=== PATIENT | female | born 1945 | race Caucasian/White ===

== ENCOUNTER → 2018-02-24 10:43 | Outpatient (BNVA) | payer MEDICARE, OTHER, SELFPAY | PROVIDERS: Visit Provider Student in an Organized Health Care Education/Training Program | DX: M17.11 Unilateral primary osteoarthritis, right knee (principal); M54.16 Radiculopathy, lumbar region; M17.12 Unilateral primary osteoarthritis, left knee | CPT/HCPCS: 20610; 99213; 99214; J1040 ==

== ENCOUNTER 2018-02-24 12:13 | Outpatient (REF) | payer MEDICARE, OTHER, SELFPAY ==
[2018-02-24 13:45] LABS: Clarity CLEAR; Mononuclear Cells 96 % (0-0); Nucleated Cells 316 /MM3 (0-0); Polynuclear Cells 4 % (0-0); Source R KNEE
== END 2018-02-24 12:33 ==
LOC: LBN 12:13
PROVIDERS: PCP Nurse Practitioner Family; Visit Provider Student in an Organized Health Care Education/Training Program
DX: M25.461 Effusion, right knee (principal)
CPT/HCPCS: 89051; 89060

== ENCOUNTER 2018-03-11 00:56 | Outpatient (CLI) | payer MEDICARE, OTHER, SELFPAY ==
--- NOTE | 2018-03-11 13:50 | DI.RAD_ITS ---
SYMPTOMS/DIAGNOSIS: AGE-RELATED OSTEOPOROSIS, M81.0 DEXA SCAN: Routine examination. Evaluation of the spine shows no compression deformities. Evaluation of the left hip shows a total T score of -1.3 and a Z score of 0.2. This is consistent with osteopenia and an increased fracture risk. Evaluation of the lumbar spine shows a total T score of 0.5 and a Z score of 2.7. This is within normal limits. There is no evidence of osteoporosis present. IMPRESSION: Osteopenia in the left hip.
== END 2018-03-11 01:16 ==
PROVIDERS: PCP Nurse Practitioner Family; Visit Provider Student in an Organized Health Care Education/Training Program
DX: M81.0 Age-related osteoporosis without current pathological fracture (principal); M85.88 Other specified disorders of bone density and structure, other site
CPT/HCPCS: 77080

== ENCOUNTER 2018-04-16 00:25 | Outpatient (CLI) | payer MEDICARE, OTHER, SELFPAY ==
--- NOTE | 2018-04-16 10:00 | DI.COMBO_ITS ---
SYMPTOMS/DIAGNOSIS: ASYMMETRIC DENSITY, R92.8, 6-MO F/U MAMMO MAMMOGRAM WITH ADDITIONAL MAMMOGRAPHIC VIEWS, LEFT BREAST, AND LEFT BREAST ULTRASOUND: Mammograms were interpreted according to the usual protocol including computer analysis with CAD system, tomosynthesis and C view imaging. Magnification views were interpreted using 2D imaging.. Mammogram with additional mammographic views of the left breast and left breast ultrasound was obtained to evaluate a group of microcalcifications seen posteriorly in the left breast on previous mammogram of October 2017. On today's examination, the group of microcalcifications, which are mostly punctate, is again seen posteriorly in the left breast in the central portion of the breast. Additional magnification views were obtained; there appear to be an increased number of microcalcifications on today's examination. Additionally, I would note that there is a question of a few isabel-like forms and some very tiny sand- like microcalcifications; these findings would be associated with increased risk of malignancy and do appear to be new since the previous examination. Left breast ultrasound shows no evidence of a mass or cyst. CONCLUSION: Interval change in left breast microcalcifications; biopsy recommended to evaluate the possibility of malignancy. Category 4, breast density category B. MQSA ASSESSMENT OF FINDINGS: Suspicious. Biopsy should be considered. Category 4. Patient will receive a letter notifying them of these results. BI-RADS category B. There are scattered areas of fibroglandular density.
== END 2018-04-16 00:45 ==
PROVIDERS: PCP Nurse Practitioner Family; Visit Provider Nurse Practitioner Family
DX: R92.1 Mammographic calcification found on diagnostic imaging of breast (principal)
CPT/HCPCS: 76642; 77061; 77065; G0279

== ENCOUNTER 2018-04-21 10:50 | Outpatient (CLI) | payer MEDICARE, OTHER, SELFPAY ==
--- NOTE | 2018-04-21 10:47 | DI.RAD_ITS ---
SYMPTOM/DIAGNOSIS: RT FOOT HALLUX VALGUS RIGHT FOOT: 04/21 Three views were obtained. There is a moderate hallux valgus deformity of the right foot. There are mild secondary degenerative changes at the first MTP joint. Mild DJD also seen in multiple mid foot joints and IP joints of the foot. No other significant bony abnormality seen.
== END 2018-04-21 11:10 ==
PROVIDERS: PCP Nurse Practitioner Family; Referring Provider Nurse Practitioner Family; Visit Provider Student in an Organized Health Care Education/Training Program
DX: M20.11 Hallux valgus (acquired), right foot (principal); M19.071 Primary osteoarthritis, right ankle and foot; M17.12 Unilateral primary osteoarthritis, left knee; M47.816 Spondylosis without myelopathy or radiculopathy, lumbar region; M17.11 Unilateral primary osteoarthritis, right knee
CPT/HCPCS: 20610; 99214; 73630; J1040

== ENCOUNTER → 2018-08-15 08:23 | Outpatient (BNVA) | payer MEDICARE, OTHER, SELFPAY | PROVIDERS: PCP Nurse Practitioner Family; Referring Provider Nurse Practitioner Family; Visit Provider Student in an Organized Health Care Education/Training Program | DX: M17.12 Unilateral primary osteoarthritis, left knee (principal) | CPT/HCPCS: 99213 ==

== ENCOUNTER 2018-09-19 09:09 | Outpatient (CLI) | payer MEDICARE, OTHER, SELFPAY ==
--- NOTE | 2018-09-19 08:11 | HPE_ITS ---
Assessment and Plan (1) Primary osteoarthritis of left knee: Current visit: Yes Status: Chronic Plan: Educated patient on surgery covering surgical technique via models/prosthesis components, recovery process, benefits and risks including but not limited to risk of infection, blood clot, damage to soft tissue/blood vessels/nerves in detail. After discussion patient gives verbal understanding of risks and elects to proceed with scheduling surgery. Patient had opportunity to have questions answered to her satisfaction. She will contact office if issues arise. Surgical planning standing alignment x-rays were ordered at today's visit which continued to show severe left knee DJD. Patient will continue to be scheduled for left TKA with Dr. Shelley on 09/25/18. History of Present Illness Narrative: Ms. Gómez is a 73-year-old female who presents to clinic for preoperative appointment for scheduled left total knee replacement with Dr. Shelley on 09/25/18. Patient has previously been seen in orthopedic clinic several times for known bilateral knee DJD. For the last 2 visits patient's left knee has been most aggravated. Patient's identifies majority of her left knee pain as being located on the medial aspect of the joint but occurs diffusely. Pain is further aggravated with ambulation, stair climbing, descending stairs, prolonged walking and with standing. Patient reports pain is severe when descending stairs causing her to go 1 stair at a time and turn to hold the railing. Due to her pain patient has difficulty completing desired activities including gardening and has had to severely adapt how she sits in order to continue gardening. She feels her left knee is occasionally unstable but denies any true giving out sensation. Patient has been managing pain by taking Celebrex twice daily which helps significantly. Previously patient has received a right knee corticosteroid injection on 02/24/18 as well as left knee corticosteroid injection on 04/21/18. Patient reports injections provided significant relief but she has continued to have recurrence of pain that affects her daily life. Previous x-rays from 10/02/17 show [id number] articulation with medial compartment, signs of sclerosis and medial joint line osteophytes - x-ray findings are consistent with severe degenerative joint disease especially of the medial compartment and patellofemoral joint. Due to patient's continued pain despite adequate trial of conservative therapies she wished to proceed with scheduling left total knee replacement. Pertinent Surgical Information Patient has significant history of invasive ductal carcinoma of the left breast. Patient underwent left breast lumpectomy in 1992. Due to return of cancer patient had a left breast mastectomy on 06/27/18. Patient reports since surgery she has been doing well. Patient states approximately 1 year ago she was experiencing back pain that radiated into her jaw. Patient presented to her primary care provider who ordered EKG and abdominal ultrasound which as per Gabbi Carroll NP note on 08/29/17 - results from work-up were WNL. At patient's follow-up appointment for these complaints on 09/13/17 she reported she was no longer experiencing this pa in. EKG was not able to be reviewed by provider at her pre-op appointment. Patient states since she was seen last August she has not experienced any back pain. Denies any history of chest pain,or any pain radiating down her arm. Patient denies all pertinent cardiac and pulmonary review of systems. Denies past medical history of: Hypertension, stroke, cardiac issues, angina, asthma, COPD, sleep apnea, renal issues, liver issues, hepatitis, gastrointestinal issues, ulcers, bleeding disorders, seizures, migraines, anxiety, depression, diabetes Denies prior complications from surgery or anesthesia. Review of Systems Constitutional Denies fever(s), Denies frequent falls and Denies headache(s) Eyes Denies change in vision ENT Denies dizziness, Denies headache(s), Denies epistaxis, Denies mouth pain, Reports nasal discharge (clear discharge occassional blood after blowing nose due to dryness), Denies nose pain and Denies sore throat Comments: Positive for partial upper dental plate Cardiovascular Denies chest pain, Denies rapid heart rate, Denies irregular heart rhythm, Denies palpitations, Denies dyspnea, Denies dyspnea on exertion, Denies orthopnea, Denies paroxysmal nocturnal dyspnea and Denies slow heart rate Respiratory Denies cough, Denies dyspnea, Denies dyspnea on exertion and Denies wheezing Gastrointestinal Denies abdominal pain, Denies melena, Denies hematochezia, Denies constipation, Denies diarrhea, Denies nausea and Denies vomiting Genitourinary Denies hematuria, Denies dysuria, Reports urinary incontinence and Denies urinary urgency Comments: Denies postmenopausal bleeding Musculoskeletal Reports as per HPI, Denies numbness (Of the left leg) and Denies tingling (Of the left leg) Neurologic Denies dizziness, Denies frequent falls, Denies headache(s), Denies numbness (Of the left leg) and Denies tingling (Of the left leg) Psychiatric Denies anxiety and Denies depression Endocrine Denies palpitations Allergic/Immunologic Denies wheezing [facility] Medical History Postmenopausal Breast cancer Increased BMI (body mass index) SCC (squamous cell carcinoma) Urge incontinence Colon polyps Invasive ductal carcinoma of breast (Inactive) Urge incontinence (Chronic 07/04/15) 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) Seborrheic keratosis (Acute 08/29/16) Pure hypercholesterolemia (Chronic 02/16/86) Primary osteoarthritis of left knee (Chronic 10/09/17) Osteoporosis (Chronic 07/04/15) Obesity (Chronic 09/26/95) Hypothyroidism (Chronic 01/09/94) Hyperlipidemia (Chronic) Dysplasia of cervix (Acute 04/24/83) BCC (basal cell carcinoma) (Resolved) Adenomatous colon polyp (Acute 06/22/13) AK (actinic keratosis) (Chronic 08/29/16) Lumbar radiculopathy, right (Chronic) Primary osteoarthritis of right knee (Chronic) Surgical History S/P mastectomy (Chronic) Breast, Lumpectomy (06/03/92) Tonsillectomy and adenoidectomy colonoscopy/polypectomy (11/02/07) S/P breast biopsy, left (Resolved 05/20/18) Family History Mother Hyperlipidemia Osteoarthritis Father Heart disease Paternal Cousin Personal history of malignant neoplasm Paternal Uncle Personal history of malignant neoplasm Social History Smoking/Tobacco Use Status: Former Tobacco Use Drug use: Never Meds Home Medications Medication Instructions Recorded Confirmed Type aspirin [Aspir 81] 81 mg PO DAILY tab-cap 07/01/15 09/19/18 History omega-3 fatty acids-fish oil 1 ea PO DAILY 07/01/15 09/19/18 History [[place] 3 Fish Oil Softgel] s-adenosylmethionine [John-E] 200 mg PO DAILY 07/01/15 09/19/18 History cholecalciferol (vitamin D3) 1,000 unit PO DAILY 07/04/15 09/19/18 History [Vitamin D3] glucosamine sulf-chondroitinSA 1 ea PO DAILY 07/04/15 09/19/18 History multivitamin [Multi-Day Vitamins] 1 ea PO DAILY 07/04/15 09/19/18 History cyanocobalamin-cobamamide 1 ea SUBLINGUAL DAILY 08/29/17 09/19/18 History ranitidine 150 mg tablet 150 mg PO HS PRN #90 tab-cap 07/09/18 09/19/18 Rx levothyroxine 137 mcg tablet 137 mcg PO DAILY #90 tab-cap 07/21/18 09/19/18 Rx celecoxib 100 mg capsule 100 mg PO BID #180 cap 08/06/18 09/19/18 Rx fish,bora,flax oils-om3,6,9no1 1 cap PO DAILY 09/19/18 09/19/18 History [[place] 3-6-9 Complex] rosuvastatin [Crestor] 20 mg PO HS 09/19/18 09/19/18 History Allergies Allergy/AdvReac Type Severity Reaction Status Date / Time coconut oil AdvReac Unknown hives Unverified 09/19/18 16:01 cyclobenzaprine AdvReac Unknown Psychosis Unverified 09/19/18 16:01 lanolin AdvReac Unknown hives Unverified 09/19/18 16:01 naproxen AdvReac Unknown hives Unverified 09/19/18 16:01 paraben AdvReac Unknown hives Unverified 09/19/18 16:01 Exam Const General: cooperative and no acute distress [facility] Head: normal to inspection, normocephalic and atraumatic Ears: external ears normal General nose exam: external nose normal and no nasal discharge Face and sinus: face symmetric Mouth: oral mucosae normal, lip normal, tongue normal and moist mucous membranes Teeth and gingiva: dentition normal Throat: posterior oropharynx normal Eyes General: appearance normal, both eyes and all related structures Pupils: PERRL EOM: EOM intact bilaterally Neck Neck: trachea midline Carotids: normal carotid upstroke Lymphatic: no lymphadenopathy noted Resp Effort & Inspection: normal respiratory effort and able to speak in complete sentences Auscultation: clear to auscultation bilaterally, no rales, no rhonchi and no wheezes Cardio Heart Sounds: S1 normal, S2 normal, no murmurs, no rubs and no other Pulses: radial pulses present bilaterally GI Palpation: soft, no hepatosplenomegaly and nontender Auscultation: normal bowel sounds Skin General skin exam: no rashes or lesions noted Extrem Other: Left knee examination: Skin is intact without signs of erythema, calor or lesions. Tenderness to palpation along medial joint line. Active range of motion is short of full extension by 10 degrees and yields flexion of 110 degrees - slight discomfort is elicited with ROM. Slight laxity is noted with valgus stress however stable endpoint is present. Knee is stable to varus stress. Slight discomfort is elicited with stress to the knee. Results Labs : 09/19/18 10:17 09/19/18 10:17
[2018-09-19 10:40] LABS: HCT 44.9 % (36.0-46.0); HGB 14.6 g/dL (12.0-15.5); Mean Corp. HGB Concentration 32.5 g/dL (32.0-36.0); Mean Corpuscular Hemoglobin 28.5 pg (27.0-33.0); Mean Corpuscular Volume 87.5 fL (80-95); Platelet Count 264 x1000/uL (130-400); RBC 5.13 m/cumm (4.00-5.20); RBC Distribution Width 13.7 % (11.7-14.6); White Blood Cell Count 6.77 k/cumm (4.4-10.8)
[2018-09-19 11:20] LABS: Anion Gap 7.9 mmol/L (3-11); BUN 21 mg/dL (7-18); CO2 29.1 mmol/L (21.0-32.0); CREATININE 0.89 mg/dL (0.55-1.02); Calcium 9.8 mg/dL (8.5-10.1); Chloride 103 mmol/L (98-107); Cholesterol 258 mg/dL (50-200); Glucose 99 mg/dL (70-100); HDL Cholesterol 83 mg/dL (40-60); LDL CHOLESTEROL 142 mg/dL (<100); Potassium 4.6 mmol/L (3.5-5.1); Sodium 140 mmol/L (136-145); Triglyceride 141 mg/dL (30-150)
== END 2018-09-19 09:29 ==
PROVIDERS: PCP Nurse Practitioner Family; Visit Provider Student in an Organized Health Care Education/Training Program
DX: M25.562 Pain in left knee (principal); M17.12 Unilateral primary osteoarthritis, left knee; E78.5 Hyperlipidemia, unspecified; E03.9 Hypothyroidism, unspecified; Z13.1 Encounter for screening for diabetes mellitus; Z01.818 Encounter for other preprocedural examination
CPT/HCPCS: 36415; 80048; 80061; 83721; 85027; 84443

== ENCOUNTER 2018-09-19 13:17 | Outpatient (CLI) | payer MEDICARE, OTHER, SELFPAY ==
--- NOTE | 2018-09-19 08:08 | DI.RAD_ITS ---
SYMPTOM/DIAGNOSIS: PREOP PLANNING FOR LT TKA BILATERAL LOWER EXTREMITIES: AP views of the lower extremities were obtained for leg length determination. There are mild degenerative changes of both hips. There are severe degenerative changes involving the medial tibiofemoral joint on the left and lateral tibiofemoral joint on the right.
== END 2018-09-19 13:37 ==
PROVIDERS: PCP Nurse Practitioner Family; Visit Provider Physician Assistant
DX: M17.0 Bilateral primary osteoarthritis of knee (principal); M16.0 Bilateral primary osteoarthritis of hip
CPT/HCPCS: 36415; 80048; 80061; 83721; 85027; 77073; 84443

== ENCOUNTER 2018-09-25 06:03 | Inpatient (IN) | payer MEDICARE, OTHER, SELFPAY ==
[2018-09-25] VITALS (10 sets, daily range): BP systolic 97–133; BP diastolic 62–75; PULSE 74–91; RESP 13–20; TEMP 36.3–36.5; O2SAT 92–100
[2018-09-25] MEDS: Acetaminophen 500 MG TAB 1000 MG PO ×3 (06:38→19:18)
[2018-09-25] MEDS: oxyCODONE-CR 10 MG TABCR PO (06:38)
[2018-09-25] MEDS: Gabapentin 300 MG CAP PO ×2 (06:38→21:02)
[2018-09-25] MEDS: Lactated Ringers 1,000 ML 80 ML IV ×3 (07:04→19:08)
[2018-09-25] MEDS: Bupivacaine 0.5% Pres-Free 30 ML VIAL (07:15)
[2018-09-25] MEDS: Bupivacaine LIPOSOME/PF 133 MG/10 ML VIAL IJ ×2 (07:15→08:44)
[2018-09-25] MEDS: ceFAZolin 2 GM/50 ML BAG IVPB (07:29)
[2018-09-25] MEDS: Ketorolac 30 MG/ML VIAL (08:44)
[2018-09-25] MEDS: Normal Saline 50 ML (08:44)
[2018-09-25] MEDS: Bupivacaine 0.25% Pres-Free 30 ML VIAL (08:44)
--- NOTE | 2018-09-25 10:52 | NUR.NOTE ---
Nursing Note:Pt arrived from PACU via stretcher. Transferred via hover mat to bed. HR reg. LS clear. BS positive. no skin issues noted. Pt has left mastectomy. CMST's WNL. Palpable pulse. denies pain. cryo on, RODRIGUEZ intact. sipping G. Kathy and eating saltines. hallman patent. VSS, see worklist.
--- NOTE | 2018-09-25 14:58 | W.PM.OP ---
Date of service: 09/25/18 Time of Service: 09:59 Operative Note DATE OF PROCEDURE: 09/25/18 PRE-OP DIAGNOSIS: Left knee osteoarthritis POST-OP DIAGNOSIS: same PROCEDURE: Left Total Knee Replacement SURGEON: Carson Shelley CALCINE FURNACE LOADER: Nano Moralez ANESTHESIA: regional and spinal ESTIMATED BLOOD LOSS: 150 PATHOLOGY: none sent TOURNIQUET TIME: 32 COMPLICATIONS: None Patient was transported to: PACU Patient's condition: stable Implants: 1. Depuy Attune Posterior Stabilized Femoral Component, Size 6 2. Depuy Attune Fixed Platform Tibial Component, Size 5 3. Depuy Attune 6x6mm Fixed, Stabilized Poly 4. Depuy Attune Patellar Component, Size 35mm Indications: I have seen Neisha in clinic for symptoms of left knee arthritis, confirmed with radiographic findings. Neisha has exhausted nonoperative methods and was having significant limitations in daily function and desired better function and less pain. I discussed the technical details of a knee replacement. I explained the risks of the procedure to include, but not limited to, bleeding, infection, pain, stiffness, fracture, damage to nerves and vessels, damage to muscles and tendons, loosening, need for repeat procedure, blood clot and cardiopulmonary demise. Despite these risks, Neisha elected to proceed. Findings: There was significant signs of arthritis throughout the knee. This was seen primarily of the medial compartment. Procedure Description: Neisha was greeted in the preoperative holding area where the correct side was identified and marked. The consent was reviewed with the patient and signed. The history and physical was updated. All questions were answered. Preoperative mediacations were administered: Acetaminophen 1000mg, Celebrex 400mg, Gabapentin 300mg, and Oxycontin 10mg. An adductor canal block was then administered by the anesthesia team in the PACU. Neisha was taken back to the operating room. A spinal anesthestic was then administered. The patient was placed into the supine position on the operating room table. A nonsterile tourniquet was placed high onto the leg but only used for cementing. Posts were placed for positioning during the procedure. All bony prominences were well padded. Prophylactic antibiotics in the form of Cefazolin were administered. 1g of Tranxemic Acid was given intravenously within 30 minutes of incision. The left leg was then prepped with Chloraprep and draped in a standard fashion with impervious stockinette and extremity drape with Iodine impregnated skin protection. A timeout to confirm correct identity, side and site, procedure, allergies, anesthesia, and medical concerns was performed. With the knee in some flexion, a midline incision was made overlying the knee. Full thickness skin flaps were raised once the extensor mechanism was encountered. These were raised medially and laterally. Any bleeding was controlled with electrocautery. Once the extensor mechanism was fully exposed, a medial parapatellar arthrotomy was performed in a flexed position. All bleeding from the arthrotomy and the geniculate arteries was coagulated. A medial subperiosteal peel was performed with electrocautery to the midcoronal plane. Due to the significant varus deformity the entire medial tibial plateau was exposed. The fat pad was removed while keeping the patellar tendon protected. The anterior distal femur synovium was removed for later visualization. The ACL and PCL were resected and the anterior horn of the lateral meniscus was transected. The knee was then flexed with the patella everted. Large osteophytes from the tibia were removed. Large osteophytes from the femur were removed. Using a step drill, and based on preoperative templating, the femoral canal was entered. This was done with a step drill without any difficulty. The intramedullary distal femoral cut guide was inserted, set to a 5 degree valgus cut and 10mm cut thickness. The distal femoral cut guide was then held in position and pinned. With the soft tissues protected, the distal cut was performed. This was passed over a few times to ensure a planar cut. I then turned attention to the tibia. The extramedullary guide was placed onto the leg. The distal aspect was slid medial to adjust for position of center of ankle and stay in line with shaft of the tibia. Approximately 3-5 degrees of posterior slope was kept in the proximal cutting guide. The center of the guide was aligned with the PCL. The stylus was used to assess cut thickness. The medial side, most involved side, was set for a 4mm cut. This was then held in position and pinned into place with 2 additional pins and a cross pin for stability. The medial and lateral collateral ligaments were protected and the cut was performed. With this completed, it was assessed and noted to be of appropriate dimensions. The guide was removed. A spacer block was inserted and the knee was brought into extension. The 6mm spacer block provided full extension, without hyperextension and with stability of both the medial and lateral collateral ligaments was assessed. The pins from the femur and the tibia were then removed. The distal femur was then sized. The anterior stylus was placed onto the lateral ridge of the anterior femur. This indicated a size 6 femur. The external rotation of the guide was adjusted to 5 degrees to match the epicondylar axis, perpendicular to Kelton?s line. The 4-in-1 cutting guide was the placed. The posterior medial femur cut was evaluated and appeared of good thickness. The spacer block was inserted underneath the cutting guide and stability was confirmed in 90 degrees of flexion. An sha wing was used to confirm appropriate position of the anterior cut to avoid notching. This cutting guide was ensured to be flush on the cut surface and then pinned into place with headed pins. While protecting the soft tissues, quad tendon, and collateral ligaments, the anterior and posterior cuts were performed with a saw. The central two pins were removed and the posterior and anterior chamfers were cut next. The notch-cutting guide was placed. This was pinned to lateralize the femoral component as much as possible while keeping it flush on the cut surface. This was then pinned into position. A reciprocating saw was used to make the notch cut. A rasp smoothed the cut surfaces. A trial posterior stabilized femoral component was then inserted, impacted down to the cut surfaces, and the lug holes were drilled. A provisional trial tibial component was placed and the knee was brought through range of motion. There was noted to be excellent extension and flexion. There was no significant instability. The patella was tracking without thumbs. The tibial cut surface was fully exposed. The medial and lateral menisci were removed. The tibia was then sized as a 5. The tibia had been previously marked during trialing to correspond to the center of the tibial component to help with rotation. The trial was aligned to this aly, approximately rotated to the medial 1/3rd of the tibial tubercle. The trial was pinned into place. The tibia was prepared with a reamer and a keel punch. The knee was then brought into extension and the patella was measured as 29mm. Using the patellar clamp and cut guide, this was resected to a flat surface with at least 13mm of thickness remaining. The size 35 patella fit the best. This was oriented and then clamped into position. The lugs were drilled. The trial components were removed. The final components, except for the polyethylene were opened on the back table. The periosteal and capsular tissues, especially posteriorly, around the knee were then systematically injected with a periarticular cocktail consisting of 50cc 0.25% Marcaine, 30mg Ketorolac, 20cc of Exparal and 50cc of injectable saline. The tourniquet was then inflated to 275mmHg. The knee was thoroughly irrigated with a pulse lavage and dried. On the back table, with the implants opened, the cement was mixed. 2 batches of antibiotic laden cement were prepared with vacuum assistance. After the cement was ready a small amount was placed on to the back side of the tibial component at the keel. A small amount was placed onto the posterior flange of the femur. Cement was manual pressurized and impregnated into the cut surface of the tibia. The tibial component was then inserted into the cut surface and impacted into position. Excess cement was removed and the component was reimpacted. Again, excess cement was removed and our attention was then turned to the femur. The femoral cut surface was once again dried and cement was manually impacted into the cut surface. The femoral component was lined with the lug holes and impacted. Excess cement was removed. It was ensured to be down against the cut surface. The trial polyethylene was then inserted and the leg was brought out into full extension for the duration of the cement curing process, approximately 15min. Cement was lastly manually impacted into the cut surface of the patella and the patellar button was clamped into position and held. During this process attention was turned to the gutters of the knee and for all interfaces for any excess cement. After the cement had finally cured, approximately 15min, the clamp was removed from the patella and the knee was taken through range of motion. A size 6mm polyethylene component provided the best range of motion and stability with less than 2mm gapping with medial and lateral stress and full extension without significant hyperextension. The patella was tracking with a no-thumbs technique. The trial poly was removed and once again the knee was checked for any loose, excess, or errant cement. The poly component was then inserted and impacted into position after cleaning and drying the tibial tray. The capsule was then reapproximated with a No. 1 Vicryl at multiple locations. The capsule was finally closed with a No. 2 Stratafix, barbed suture. The tourniquet was then released and the arthrotomy appeared watertight without significant bleeding. The second dosing of 1g TXA was started. Deep tissues were then reapproximated with 0 Vicryl and 2-0 Vicryl. The skin was closed with a running 3-0 Monocryl in a subcuticular fashion. This was reinforced with skin glue. A Mepilex silver dressing was applied along with a abok-tn-bunug RODRIGUEZ wrap. A CryoCuff was applied. Neisha was transferred to the hospital bed without difficulty an suffering no apparent complication. Neisha has a good prognosis. Physical therapy will start today and without restrictions, weight-bearing as tolerated. Aspirin 81mg BID will be used for DVT prophylaxis.
--- NOTE | 2018-09-25 15:54 | IN_ITS ---
Date of service: 09/25/18 Time of Service: 11:15 PT Notes Inpatient Physical Therapy Evaluation Date: 09/25/2018 Referring Doctor: Carson Shelley MD PT Orders: PT CONSULT: Status post left TKA Precautions: Fall. Standard. Patient Profile/Admitting Diagnosis: Patient is a 73-year-old female referred to physical therapy for conservative management status post left knee arthroplasty due to primary osteoarthritis of left knee on POD 0. 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) Seborrheic keratosis (Acute 08/29/16) Pure hypercholesterolemia (Chronic 02/16/86) Primary osteoarthritis of left knee (Chronic 10/09/17) Osteoporosis (Chronic 07/04/15) Obesity (Chronic 09/26/95) Hypothyroidism (Chronic 01/09/94) Hyperlipidemia (Chronic) Dysplasia of cervix (Acute 04/24/83) BCC (basal cell carcinoma) (Resolved) Adenomatous colon polyp (Acute 06/22/13) AK (actinic keratosis) (Chronic 08/29/16) Lumbar radiculopathy, right (Chronic) Primary osteoarthritis of right knee (Chronic) Surgical History S/P mastectomy (Chronic) Breast, Lumpectomy (06/03/92) Tonsillectomy and adenoidectomy colonoscopy/polypectomy (11/02/07) S/P breast biopsy, left (Resolved 05/20/18) Social History/Home Situation: Patient lives in a 1-floor house with 2 steps to enter with rail on the right going up. She is independent with all aspects of ADLs without ambulatory device nor adaptive equipment prior to admission. She states she has a straight cane that she does not use. Daughter lives close by and plans on checking in on her upon discharge. Patient states that she goes to [employer] [facility] twice a week and to yoga class once a week. She still drives. Equipment Owned/DME: Standard walker. Subjective: Patient is pleasant and cooperative. She is agreeable to a PT consult and treatment. She denies nausea, dizziness, and pain throughout the PT session. Objective: General Observation: Patient seen lying in bed. IV in right UE. Anti DVT pump on the right leg. RODRIGUEZ wraps on left LE. Borja catheter in place. BAN stocking on right leg. Mental Status: Alert and oriented x3 Pain: 0/10 Vital Signs: 106/72 mmHg, 97% on room air, 82 bpm. ROM: Right Upper Extremity: Shoulder Flexion WFL. Shoulder abduction WFL. Elbow flexion WFL. Wrist flexion WFL. Functional opening and closing of hand WFL. Left Upper Extremity: Shoulder Flexion WFL. Shoulder abduction WFL. Elbow flexion WFL. Wrist flexion WFL. Functional opening and closing of hand WFL. Right Lower Extremity: Hip flexion WFL. Hip abduction WFL. Knee flexion WFL. Ankle dorsiflexion WFL. Ankle plantarflexion WFL. Left Lower Extremity: Hip flexion 0 to 90 degrees with range limited by abdominal adipose tissue. Hip abduction WFL. Knee flexion 0-100 degrees, range limited by RODRIGUEZ wraps. Knee extension -5 degrees. Ankle dorsiflexion WFL. Ankle plantarflexion WFL. Strength: Right Upper Extremity: Shoulder flexors 5/5. Shoulder abductors 5/5. Elbow flexors 5/5. Elbow extensors 5/5. Route Inspector strong. Left Upper Extremity: Shoulder flexors 5/5. Shoulder abductors 5/5. Elbow flexors 5/5. Elbow extensors 5/5. Route Inspector strong. Right Lower Extremity: Hip flexors 5/5. Hip abductors 5/5. Knee flexors 5/5. Knee extensors 5/5. Ankle dorsiflexors 5/5. Ankle plantarflexors 5/5. Left Lower Extremity:Hip flexors 3-/5. Hip abductors 5/5. Knee flexors 3-/5. Knee extensors 3-/5. Ankle dorsiflexors 5/5. Ankle plantarflexors 5/5. Isometric contraction of quadriceps minimally reduced. Sensation: Intact as to pain and pressure on BLE BED MOBILITY LEVELS/TRANSFERS Rolling CGA Supine to sit CGA with HOB elevated 30 degrees Sit to supine CGA with HOB elevated 30 degrees Sit to stand CGA Stand to sit CGA Bed to chair CGA Chair to bed CGA Gait: Patient tolerated level surface ambulation 10 feet forward, 10 feet backward, and 5 feet to walk towards her chair using FWW with WBAT on L LE and CGA of this PT with minimal verbal cues given for overall safety, walker management, and correct gait pattern. No report of nausea and dizziness were received. He did report mild discomfort at 1/10 on the lateral aspect of the left knee after walking activity. Balance: Static Sitting: Good Dynamic Sitting: Good Static Standing: Fair Dynamic Standing: Fair Special Tests: Mobility Limitations Standardized Measure [facility] AM-PAC 6 clicks Basic Mobility Inpatient Short Form: Raw Score: 18 CMS Score: 47% deficit Informed Consent/Education: Patient instructed in purpose of PT consult and plan of care. Patient was also instructed on correct techniques with doing seated exercises focusing on open chain active left knee extension with isometric hold for 5 counts, active knee flexion to end of range with isometric hold for 5 counts, quadriceps setting with left foot placed on a footstool with 5-second hold, and ankle pain on both sides to be done 10 times every hour in order to maximize range of motion and strength. Assessment: Patient is a 73 year old female referred to physical therapy services with the diagnosis of unilateral primary osteoarthritis of left knee status post left total knee arthroplasty. Patient presents with clinical signs and symptoms consistent with current/admitting diagnoses and post reparative status that have resulted to mobility limitations, gait instability, generalized weakness, and impairment of motor control as demonstrated by the following impairment level findings: 1. Decreased strength to L LE major muscle groups 2. Impaired sitting/standing balance 3. Impaired activity tolerance 4. Limitation of joint range of motion in left knee Impairments are contributing to the following functional limitations: 1. Dependent bed mobility skills 2. Increased dependence with transfers 3. Inability to safely ambulate without assistive device and physical assistance 4. Increase completion time for mobility ADL performance 5. Increased fall risk 6. 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 Supine-Sit independent 2. Sit-Supine independent 3. Sit-Stand independent 4. Stand-Sit independent 5. Bed-Chair independent 6. Chair-Bed independent 7. Independent gait on level surface with use of least restrictive device for at least 300 feet without report of pain nor dyspnea 8. Independent stair negotiation while holding onto bilateral rails for at least 10 steps without report of pain nor dyspnea 9. Independent with home exercise program 10. Good static and dynamic standing balance/tolerance Plan of Care/Treatment Plan: 1-2x/day, 7 days/week x 1 week. Plan of care has been reviewed with the HIGHWAY ENGINEERING TEACHER providing the service under Physical Therapy direction. Initiate Physical Therapy intervention for strengthening, bed mobility, transfers, gait, stairs, balance training, use of assistive device. DISCHARGE RECOMMENDATIONS: Patient will benefit from a front wheeled walker in order to maximize safety and reduce fall risk at home. TREATMENT CODE/TIME: 15931 30 minutes, 82033 19 minutes beginning at 11:15 AM. Thank you for this referral. Katiuska Miner, PT, DPT, CLT [facility]
[2018-09-25] MEDS: Aspirin E.C. 81 MG TABEC PO (19:18)
[2018-09-25] MEDS: Rosuvastatin 10 MG TAB 20 MG PO (19:18)
[2018-09-25] MEDS: Celecoxib 100 MG CAP 200 MG PO (19:18)
[2018-09-26 00:08] VITALS: BP 116/73; PULSE 82; RESP 16; TEMP 36.4; O2SAT 95
[2018-09-26 03:35] VITALS: BP 117/74; PULSE 79; RESP 18; TEMP 36.4; O2SAT 97
[2018-09-26] MEDS: Multivitamin TAB 1 TAB PO (07:45)
[2018-09-26] MEDS: Acetaminophen 500 MG TAB 1000 MG PO (07:45)
[2018-09-26] MEDS: Aspirin E.C. 81 MG TABEC PO (07:45)
[2018-09-26] MEDS: Celecoxib 100 MG CAP 200 MG PO (07:45)
[2018-09-26 07:54] VITALS: BP 123/80; PULSE 78; RESP 18; TEMP 36.6; O2SAT 95
--- NOTE | 2018-09-26 08:15 | DSE_ITS ---
Date of service: 09/26/18 Time of Service: 08:14 DS: Diagnosis Discharge Diagnosis (1) Primary osteoarthritis of left knee: Status: Chronic Discharge Plan Disposition Patient Disposition: HOME Condition: Good Discharge Details Reason For Visit: L KNEE DJD Admit Date/Time: 09/25/18 06:03 Admit Provider: Carson Shelley Attending Provider: Carson Shelley Primary Care Provider: Gabbi Carroll Hospital Course Hospital Course: Patient was admitted to the medical/surgical floor following the procedure. It was tolerated well without any notable medical, surgical, or anesthetic complications. Mobilization began postoperatively. The hallman catheter was removed and voiding spontaneously. Vitals were stable. Physical therapy worked with the patient and was cleared for discharge home. No acute medical issues. Home Meds and New Rx's Prescriptions: New celecoxib 200 mg capsule 200 mg PO BID PRN (Reason: pain) Qty: 60 RF: 1 acetaminophen 500 mg tablet 1,000 mg PO Q8H PRN (Reason: pain) Qty: 90 RF: 3 oxycodone 5 mg tablet 5 mg PO Q4H Qty: 18 RF: 0 Continued John-E 200 MG tablet 200 mg PO DAILY RF: 0 One-Per-Day Maricao-3 1 EACH capsule,delayed release(DR/EC) 1 ea PO DAILY RF: 0 multivitamin [Multi-Day] 1 EACH tablet 1 ea PO DAILY RF: 0 glucosamine sulf-chondroitinSA 1 EACH capsule 1 ea PO DAILY RF: 0 cholecalciferol (vitamin D3) [Vitamin D3] 1,000 UNIT capsule 1,000 unit PO DAILY RF: 0 cyanocobalamin-cobamamide 1 EACH tablet, sublingual 1 ea Sublingual DAILY RF: 0 ranitidine HCl 150 mg tablet 150 mg PO HS PRN (Reason: acid reflux) Qty: 90 RF: 3 levothyroxine 137 mcg tablet 137 mcg PO DAILY Qty: 90 RF: 3 rosuvastatin [Crestor] 20 MG tablet 20 mg PO HS RF: 0 fish,bora,flax oils-om3,6,9no1 [Maricao 3-6-9 Complex] 400-400-400 mg Capsule 1 cap PO DAILY RF: 0 coenzyme Q10 [Co Q-10] 50 mg Capsule 50 mg PO DAILY RF: 0 Changed aspirin [Aspir-81] 81 MG tablet,delayed release (DR/EC) 81 mg PO BID Qty: 60 RF: 0 Discontinued celecoxib 100 mg capsule 100 mg PO BID Qty: 180 RF: 0 Discharge Instructions Additional Instructions: Dr. Shelley?s Total Knee Discharge Instructions Activity: The most important activity is to walk. You should try to take short walks a few times a day. It is important that when resting you work on keeping the knee straight. Avoid putting a pillow behind the knee as this will encourage flexion. Work on range of motion exercises as provided by Physical Therapy. - Start outpatient physical therapy within 2 weeks. - You should wear the BAN hose on both legs for 4 weeks. Dressing: Keep the surgical dressing in place for at least one week. After the first week it may be removed and replace with light gauze and tape or nothing. It may get wet after 3 days but avoid soaking the dressing. If it gets wet, just lightly pat dry. Medications: - You should take Tylenol and anti-inflammatory (Celebrex) as your primary pain control medications - You have been prescribed a stronger pain medication (Oxycodone) for breakthrough pain, take as needed as prescribed. - You will be taking Aspirin 81mg twice a day for DVT prevention unless instructed otherwise. - If you have constipation you should take Colace or Miralax (both [id number]). It takes most people 3-4 days to have a bowel movement. Follow-up: 2 weeks Referrals: Carson Shelley MD [ [facility] STAFF PHYSICIAN] - Activity:: Activity as Tolerated Equipment/Supplies:: Walker Diet:: As Tolerated Discharge Orders Discharge Orders: Discharge Order (Routine); Ordered 09/26/18 Ordered By: Carson Shelley DS: Data Vitals/I&O Vitals and I&O: Vital Signs Temperature 36.6 C 09/26/18 07:54 Temperature Source Tympanic 09/26/18 07:54 Pulse 78 09/26/18 07:54 Pulse Rhythm Regular 09/26/18 07:51 Respiratory Rate 18 09/26/18 07:54 Respiratory Effort Non-Labored 09/26/18 07:51 Respiratory Depth Normal 09/26/18 07:51 Respiratory Pattern Normal 09/26/18 07:51 Blood Pressure 123/80 09/26/18 07:54 Pulse Oximetry 95 09/26/18 07:54 Respiratory End-tidal CO2 36 09/25/18 10:10 Oxygen Delivery Method Room Air 09/26/18 07:54 Oxygen Flow Rate 0 09/26/18 07:54 Pain Level 1 09/26/18 07:45 Comment 09/26/18 03:35 Intake & Output 09/25/18 09/25/18 09/26/18 11:59 23:59 11:59 Intake Total 1310 / 3044 1734 / 3044 1574 / 1574 Output Total 200 / 2425 2225 / 2425 1400 / 1400 Balance 1110 / 619 -491 / 619 174 / 174 Weight 96 kg Intake: IV 1260 / 2204 944 / 2204 1024 / 1024 Oral 50 / 840 790 / 840 550 / 550 Output: Urine 50 / 2275 2225 / 2275 1400 / 1400 Estimated Blood Loss 150 / 150 Other: Urine Color Yellow Pale Pale Yellow Urine Appearance Clear Clear Clear Emesis Description None PFSH Medical History Postmenopausal Breast cancer Increased BMI (body mass index) SCC (squamous cell carcinoma) Urge incontinence Colon polyps Invasive ductal carcinoma of breast (Inactive) Urge incontinence (Chronic 07/04/15) 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) Seborrheic keratosis (Acute 08/29/16) Pure hypercholesterolemia (Chronic 02/16/86) Primary osteoarthritis of left knee (Chronic 10/09/17) Osteoporosis (Chronic 07/04/15) Obesity (Chronic 09/26/95) Hypothyroidism (Chronic 01/09/94) Hyperlipidemia (Chronic) Dysplasia of cervix (Acute 04/24/83) BCC (basal cell carcinoma) (Resolved) Adenomatous colon polyp (Acute 06/22/13) AK (actinic keratosis) (Chronic 08/29/16) Lumbar radiculopathy, right (Chronic) Primary osteoarthritis of right knee (Chronic) Surgical History S/P mastectomy (Chronic) Breast, Lumpectomy (06/03/92) Tonsillectomy and adenoidectomy colonoscopy/polypectomy (11/02/07) S/P breast biopsy, left (Resolved 05/20/18) Family History Mother Hyperlipidemia Osteoarthritis Father Heart disease Paternal Cousin Personal history of malignant neoplasm Paternal Uncle Personal history of malignant neoplasm Social History Smoking/Tobacco Use Status: Former Tobacco Use Drug use: Never
[2018-09-26 11:52] VITALS: BP 117/73; PULSE 72; RESP 20; TEMP 36.2; O2SAT 96
--- NOTE | 2018-09-26 13:37 | PDOC.CMPRO ---
Care Management Progress Note KERON met with Neisha Seay who was sitting up in her chair, pleasant and engaging in interaction; she spoke in length about her move to [place] a few years ago from [place]. She reports finding a home in a supportive community in [place] and making fast friends. She participates in an exercise group with folks locally and feels well supported. She reports her daughter is single and lives alone nearby in [place], [place]. She shared her son is a computer numeric control setter in [place] who's is a doctor; and stated the couple was coming up, driving her home from [facility] and staying with her for awhile for recovery. 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 She moved to [place] after her mother , and Neisha Seay sold her home. Felipa reports a supportive family and friends and shares no concerns regarding her pending discharge. At MD and patient request, KERON filled Charles FWW for Neisha Seay to bring home upon discharge. She will transport via private vehicle with her son, follow up with Dr. Shelley and her plan of care as prescribed.
--- NOTE | 2018-09-26 13:48 | CMPROGNOTE_ITS ---
Care Management Progress Note KERON met with Neisha Seay who was sitting up in her chair, pleasant and engaging in interaction; she spoke in length about her move to [place] a few years ago from [place]. She reports finding a home in a supportive community in [place] and making fast friends. She participates in an exercise group with folks locally and feels well supported. She reports her daughter is single and lives alone nearby in [place], [place]. She shared her son is a computer systems analyst in [place] who's is a doctor; and stated the couple was coming up, driving her home from [facility] and staying with her for awhile for recovery. 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 She moved to [place] after her mother , and Neisha Seay sold her home. Felipa reports a supportive family and friends and shares no concerns regarding her pending discharge. At MD and patient request, KERON filled Charles FWW for Neisha Seay to bring home upon discharge. She will transport via private vehicle with her son, follow up with Dr. Shelley and her plan of care as prescribed.
--- NOTE | 2018-09-26 15:33 | PT.INTREAT ---
Date of service: 09/26/18 Time of Service: 15:33 PT Notes Inpatient Physical Therapy Treatment Note [facility] Date: 09/26/2018 PRECAUTIONS: Fall, WBAT L SUBJECTIVE: Neisha Seay states that she feels good today, and has minimal pain. OBJECTIVE: PAIN: Minimal c/o L posterior thigh discomfort with gait training BED MOBILITY/TRANSFERS Supine-sit: I Sit-stand: S in a.m.; I in p.m. Stand-sit: S in a.m.; I in p.m. GAIT Assistive Device: FWW Weight bearing: WBAT L Assist: SBA in a.m.; S in p.m. Distance: 100' x2 in both a.m. and p.m. THEREX: Patient completed a LE strengthening and stabilization program, as per flow sheet. Left knee AROM is -4-100 degrees. Ends with cryocuff to left knee. STAIRS: Up/down 3x4 and 2x6 using one rail/SPC and a step to pattern, independently TOILETING: Patient toileted with supervision for transfers only ASSESSMENT: Patient tolerated session with minimal complaints of left LE discomfort with gait training. Patient was able to tolerate a progression in gait training with FWW support and supervision. Patient will benefit from continued gait training with FWW as well as strengthening for improved mobility. PLAN: As per primary PT TREATMENT CODE/TIME: Session 1: 35 minutes; 42197, [id number] Session 2: 15 minutes; 83128
--- NOTE | 2018-09-29 13:24 | PT.INDS ---
Date of service: 09/26/18 PT Notes Inpatient Physical Therapy Discharge Summary Dates: 09/26/2018 Dates of Service: 09/25/2018 and 09/26/2018 This is a clinical summary of skilled services provided on the duration of dates listed above. No charge was made in the completion of this document. Referring Doctor: Carson Shelley MD PT Orders: PT CONSULT: Status post left TKA Precautions: Fall. Standard. Patient Profile/Admitting Diagnosis: Patient is a 73-year-old female referred to physical therapy for conservative management status post left knee arthroplasty due to primary osteoarthritis of left knee on POD 0. 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) Seborrheic keratosis (Acute 08/29/16) Pure hypercholesterolemia (Chronic 02/16/86) Primary osteoarthritis of left knee (Chronic 10/09/17) Osteoporosis (Chronic 07/04/15) Obesity (Chronic 09/26/95) Hypothyroidism (Chronic 01/09/94) Hyperlipidemia (Chronic) Dysplasia of cervix (Acute 04/24/83) BCC (basal cell carcinoma) (Resolved) Adenomatous colon polyp (Acute 06/22/13) AK (actinic keratosis) (Chronic 08/29/16) Lumbar radiculopathy, right (Chronic) Primary osteoarthritis of right knee (Chronic) Surgical History S/P mastectomy (Chronic) Breast, Lumpectomy (06/03/92) Tonsillectomy and adenoidectomy colonoscopy/polypectomy (11/02/07) S/P breast biopsy, left (Resolved 05/20/18) Social History/Home Situation: Patient lives in a 1-floor house with 2 steps to enter with rail on the right going up. She is independent with all aspects of ADLs without ambulatory device nor adaptive equipment prior to admission. She states she has a straight cane that she does not use. Daughter lives close by and plans on checking in on her upon discharge. Patient states that she goes to [employer] exercise group twice a week and to yoga class once a week. She still drives. Equipment Owned/DME: Standard walker. Subjective: NT Objective: General Observation: NT Mental Status: Alert and oriented x3 Pain: NT ROM: Right Upper Extremity: Shoulder Flexion WFL. Shoulder abduction WFL. Elbow flexion WFL. Wrist flexion WFL. Functional opening and closing of hand WFL. Left Upper Extremity: Shoulder Flexion WFL. Shoulder abduction WFL. Elbow flexion WFL. Wrist flexion WFL. Functional opening and closing of hand WFL. Right Lower Extremity: Hip flexion WFL. Hip abduction WFL. Knee flexion WFL. Ankle dorsiflexion WFL. Ankle plantarflexion WFL. Left Lower Extremity: Hip flexion 0 to 90 degrees with range limited by abdominal adipose tissue. Hip abduction WFL. Knee flexion 0-100 degrees, range limited by RODRIGUEZ wraps. Knee extension -5 degrees. Ankle dorsiflexion WFL. Ankle plantarflexion WFL. Strength: Right Upper Extremity: Shoulder flexors 5/5. Shoulder abductors 5/5. Elbow flexors 5/5. Elbow extensors 5/5. Technology Training Associate strong. Left Upper Extremity: Shoulder flexors 5/5. Shoulder abductors 5/5. Elbow flexors 5/5. Elbow extensors 5/5. Technology Training Associate strong. Right Lower Extremity: Hip flexors 5/5. Hip abductors 5/5. Knee flexors 5/5. Knee extensors 5/5. Ankle dorsiflexors 5/5. Ankle plantarflexors 5/5. Left Lower Extremity:Hip flexors 3-/5. Hip abductors 5/5. Knee flexors 3-/5. Knee extensors 3-/5. Ankle dorsiflexors 5/5. Ankle plantarflexors 5/5. Isometric contraction of quadriceps minimally reduced. Sensation: Intact as to pain and pressure on BLE BED MOBILITY LEVELS/TRANSFERS Rolling I Supine to sit I Sit to supine I Sit to stand I Stand to sit I Bed to chair I Chair to bed I Gait: Patient tolerated level surface ambulation 100 x 2 using FWW with WBAT on L LE and supervision of this PT with minimal verbal cues given for overall safety, walker management, and correct gait pattern. No report of nausea and dizziness were received. Patient also tolerated three 4 inch stairs and two 6 inch steps while holding onto rail with one hand and using SC with the other hand using a step to pattern independently. Balance: Static Sitting: Good Dynamic Sitting: Good Static Standing: Fair Dynamic Standing: Fair Special Tests: Mobility Limitations Standardized Measure [facility] AM-PAC 6 clicks Basic Mobility Inpatient Short Form: Raw Score: 18 CMS Score: 47% deficit Assessment: Patient is a 73 year old female referred to physical therapy services with the diagnosis of unilateral primary osteoarthritis of left knee status post left total knee arthroplasty. Patient presents with clinical signs and symptoms consistent with current/admitting diagnoses and post reparative status that have resulted to mobility limitations, gait instability, generalized weakness, and impairment of motor control as demonstrated by the following impairment level findings: 1. Decreased strength to L LE major muscle groups 2. Impaired sitting/standing balance 3. Impaired activity tolerance 4. Limitation of joint range of motion in left knee Impairments are contributing to the following functional limitations: 1. Dependent bed mobility skills 2. Increased dependence with transfers 3. Inability to safely ambulate without assistive device and physical assistance 4. Increase completion time for mobility ADL performance 5. Increased fall risk 6. Inability to negotiate steps alone safely Goals: Goals X1 week 1. Supine-Sit independent MET 2. Sit-Supine independent MET 3. Sit-Stand independent MET 4. Stand-Sit independent MET 5. Bed-Chair independent MET 6. Chair-Bed independent MET 7. Independent gait on level surface with use of least restrictive device for at least 300 feet without report of pain nor dyspnea NOT MET 8. Independent stair negotiation while holding onto bilateral rails for at least 10 steps without report of pain nor dyspnea NOT MET 9. Independent with home exercise program MET 10. Good static and dynamic standing balance/tolerance NOT MET DISCHARGE RECOMMENDATIONS: Patient will benefit from a front wheeled walker in order to maximize safety and reduce fall risk at home. TREATMENT CODE/TIME: N/A Thank you for this referral. Katiuska Miner, PT, DPT, CLT [facility]
== END 2018-09-26 13:44 | disposition home or self-care (01) | DRG 470 ==
LOC: PDS 09:21 → MS 10:36
PROVIDERS: Admitting Provider Student in an Organized Health Care Education/Training Program; PCP Nurse Practitioner Family; Visit Provider Student in an Organized Health Care Education/Training Program
PROC: 0SRD0J9 Replacement of Left Knee Joint with Synthetic Substitute, Cemented, Open Approach (ICD-10-PCS; CPT 27447; principal; 2018-09-25 07:30)
DX: M17.0 Bilateral primary osteoarthritis of knee (principal); Z96.652 Presence of left artificial knee joint; M25.562 Pain in left knee; M21.162 Varus deformity, not elsewhere classified, left knee; G89.18 Other acute postprocedural pain
CPT/HCPCS: 27447; 76942; 97110; 97162; 97530; NC; A4600; J0690; J1100; J1885; J2250; J2405

== ENCOUNTER 2018-10-09 10:06 | Outpatient (CLI) | payer MEDICARE, OTHER, SELFPAY ==
--- NOTE | 2018-10-09 10:00 | DI.RAD_ITS ---
SYMPTOM/DIAGNOSIS: F/U, S/P LT TKA LATERAL LEFT KNEE: Lateral view was obtained and shows total knee joint replacement in position. The components appear well seated. No other bony abnormality is seen. BILATERAL LOWER EXTREMITIES: AP view of the lower extremities was performed for leg length determination. A total knee joint replacement in position on the left. 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
== END 2018-10-09 10:26 ==
PROVIDERS: PCP Nurse Practitioner Family; Referring Provider Nurse Practitioner Family; Visit Provider Orthopaedic Surgery
DX: M17.12 Unilateral primary osteoarthritis, left knee (principal); Z96.652 Presence of left artificial knee joint; M17.11 Unilateral primary osteoarthritis, right knee; Z47.1 Aftercare following joint replacement surgery; M70.61 Trochanteric bursitis, right hip
CPT/HCPCS: 73560; 77073

== ENCOUNTER → 2018-11-05 10:05 | Outpatient (BNVA) | payer MEDICARE, OTHER, SELFPAY | PROVIDERS: PCP Nurse Practitioner Family; Referring Provider Nurse Practitioner Family; Visit Provider Student in an Organized Health Care Education/Training Program | DX: Z47.1 Aftercare following joint replacement surgery (principal); Z96.652 Presence of left artificial knee joint ==

== ENCOUNTER → 2018-12-17 10:16 | Outpatient (BNVA) | payer MEDICARE, OTHER, SELFPAY | PROVIDERS: PCP Nurse Practitioner Family; Referring Provider Nurse Practitioner Family; Visit Provider Student in an Organized Health Care Education/Training Program | DX: Z47.1 Aftercare following joint replacement surgery (principal); Z96.652 Presence of left artificial knee joint ==

== ENCOUNTER → 2019-05-21 10:38 | Outpatient (BNVA) | payer MEDICARE, OTHER, SELFPAY | PROVIDERS: PCP Nurse Practitioner Family; Referring Provider Nurse Practitioner Family; Visit Provider Physical Therapy Assistant | DX: Z12.11 Encounter for screening for malignant neoplasm of colon (principal); Z86.010 Personal history of colon polyps; Z80.0 Family history of malignant neoplasm of digestive organs; Z85.3 Personal history of malignant neoplasm of breast ==

== ENCOUNTER 2019-07-03 07:03 | Day surgery (SDC) | payer MEDICARE, OTHER, SELFPAY ==
[2019-07-03 07:21] VITALS: BP 126/87; PULSE 97; RESP 16; TEMP 36.5; O2SAT 94
[2019-07-03] MEDS: Lactated Ringers 1,000 ML 80 ML IV (07:50)
--- NOTE | 2019-07-03 08:06 | W.PM.HP.N ---
Date of service: 07/03/19 Time of Service: 08:06 Assessment and Plan Assessment and plan (1) History of colon polyps: Status: Acute Assessment and plan: I advised colonoscopy. The procedure was described including the risks of perforation with need for surgery or bleeding. Patient agrees to proceed. History of Present Illness Narrative: 74 y/o female with history of left sided breast cancer (s/p masectomy in 06/2018), GERD, hypothyroidism and hyperlipidemia presents for screening colonoscopy. Her last screening was in 2013, which was remarkable for polyps (type unknown) with recommended f/u in 5 years. She reports a family history of colon cancer in a paternal uncle. She denies any changes in bowel habits including bloody or black tarry stools, abdominal pain, diarrhea or constipation. She denies constitutional symptoms. Denies use of marijuana or any other recreational or illegal drugs. She denies chest pain, palpitations, dyspnea or dyspnea with exertion. She denies prior history or family history of adverse reactions or complications with anesthesia. She has metal implanted in her left knee. Review of Systems All systems reviewed & are unremarkable except as noted in HPI and below PFSH Medical History Chronic low back pain (Chronic) Right lumbar radiculopathy, L5-S1 isthmus spondylolisthesis Gastroesophageal reflux disease (Chronic) Hyperlipidemia (Chronic) Hypothyroidism (Chronic) Malignant neoplasm of left breast (Inactive) 1992 s/p chemo, radiation, lumpectomy, tamoxifen. Recurrence in 2017 s/p total mastectomy Obesity (Chronic) Osteopenia (Chronic) Dexa 03/20 Osteoporosis (Resolved) S/p tx with Fosamax x 4 years SCC (squamous cell carcinoma) (Resolved) R lateral cheek 11/16 and R malar prominence 12/17 Urge incontinence (Inactive) Surgical History H/O total mastectomy of left breast (Acute 06/27/18) S/P colonoscopy (Acute 06/19/13) S/P tonsillectomy and adenoidectomy (Acute) Status post left breast lumpectomy (Acute 1992) Status post left knee replacement (Acute 09/25/18) Family History Mother , at 88 Hyperlipidemia Osteoarthritis Atrial fibrillation Heart disease Depression Father , at 77 Heart disease Hypertension Myocardial infarction Son No problems noted. Daughter No problems noted. Maternal Grandfather , at 65 Brain cancer Type 2 diabetes mellitus Maternal Grandmother , at 81 No problems noted. Paternal Grandfather , at 50 Throat cancer Paternal Grandmother , at 84 Heart disease Social History Smoking/Tobacco Use Status: Former Tobacco Use Quit Date: 06/03/71 Tobacco: How many years used: 6 Alcohol Intake: current Alcohol Intake frequency: 0-2 drinks per day Alcohol type: wine Drug use: Never Substance use type: does not use Do you feel safe at home: Yes Additional Social history: lives alone History History 4 Para 2 Hx # Term Pregnancies Multiple births Hx # Pregnancies Ectopic pregnancies AB induced 2 Hx Number of Living Children 2 AB spontaneous Meds Home Medications and Allergies Home Medications Medication Instructions Recorded Confirmed Type John-E 200 mg PO DAILY 07/01/15 07/03/19 History cholecalciferol (vitamin D3) 1,000 unit PO DAILY 07/04/15 07/01/19 History [Vitamin D3] glucosamine sulf-chondroitinSA 1 ea PO DAILY 07/04/15 07/03/19 History multivitamin [Multi-Day] 1 ea PO DAILY 07/04/15 07/03/19 History cyanocobalamin-cobamamide 1 ea SUBLINGUAL DAILY 08/29/17 07/03/19 History levothyroxine 137 mcg tablet 137 mcg PO DAILY #90 tab-cap 07/21/18 07/03/19 Rx fish,bora,flax oils-om3,6,9no1 1 cap PO DAILY 09/19/18 07/03/19 History [[place] 3-6-9 Complex] coenzyme Q10 [Co Q-10] 50 mg PO DAILY 09/25/18 07/01/19 History aspirin 81 mg tablet,delayed 81 mg PO DAILY tab-cap 04/16/19 07/01/19 History release celecoxib 100 mg capsule 100 mg PO DAILY cap 04/16/19 07/03/19 History rosuvastatin 20 mg tablet 20 mg PO HS #90 tab 04/16/19 07/03/19 Rx varicella-zoster gE-AS01B (PF) 50 0.5 ml IM ONCE #1 each 04/16/19 05/21/19 Rx mcg/0.5 mL IM jr kirsty bisacodyl 5 mg tablet,delayed 5 mg PO ONCE #4 tab 05/21/19 07/03/19 Rx release polyethylene glycol 3350 17 238 g PO ONCE #238 gm 05/21/19 07/03/19 Rx gram/dose oral powder ranitidine HCl 150 mg tablet 150 mg PO HS PRN #90 tab-cap 06/29/19 07/03/19 Rx Allergies Allergy/AdvReac Type Severity Reaction Status Date / Time coconut oil AdvReac Unknown hives Unverified 07/01/19 08:49 cyclobenzaprine AdvReac Unknown Psychosis Unverified 07/01/19 08:49 lanolin AdvReac Unknown hives Unverified 07/01/19 08:49 naproxen AdvReac Unknown hives Unverified 07/01/19 08:49 paraben AdvReac Unknown hives Unverified 07/01/19 08:49 Exam Const General: healthy appearing and not in acute distress Nutritional Appearance: well nourished Orientation: oriented x3 HENMT Head: normal to inspection Eyes Sclera: sclerae normal Pupils: PERRL Neck Neck: no lymphadenopathy Thyroid: thyroid normal Resp Effort & Inspection: normal respiratory effort Auscultation: clear to auscultation bilaterally and no wheezes Cardio Rate: regular rate Rhythm: regular rhythm GI Inspection: non-distended Palpation: soft, no hepatosplenomegaly, no hernias and nontender Skin General skin exam: no rashes or lesions noted Neuro General: alert Cognition: normal cognition Extrem General: normal to inspection Psych Affect: normal affect Attitude: cooperative Results Last Vital Signs Temp 97.7 F 07/03/19 07:21 Pulse 97 H 07/03/19 07:21 Resp 16 07/03/19 07:21 BP 126/87 07/03/19 07:21 Pulse Ox 94 L 07/03/19 07:21
--- NOTE | 2019-07-03 08:10 | PDOC.DSDIS_ITS ---
Discharge Plan Disposition Patient Disposition: HOME Condition: Good Discharge Details Reason For Visit: Colonoscopy Attending Provider: Reina Reinoso Primary Care Provider: Argelia Carpenter Home Meds and New Rx's Prescriptions: Continued aspirin [Aspir-81] 81 mg tablet,delayed release (DR/EC) 81 mg PO DAILY RF: 0 celecoxib 100 mg capsule 100 mg PO DAILY RF: 0 Shingrix (PF) 50 mcg/0.5 mL suspension for reconstitution 0.5 ml IM ONCE Qty: 1 RF: 0 rosuvastatin [Crestor] 20 mg tablet 20 mg PO HS Qty: 90 RF: 4 John-E 200 MG tablet 200 mg PO DAILY RF: 0 multivitamin [Multi-Day] 1 EACH tablet 1 ea PO DAILY RF: 0 glucosamine sulf-chondroitinSA 1 EACH capsule 1 ea PO DAILY RF: 0 cholecalciferol (vitamin D3) [Vitamin D3] 1,000 UNIT capsule 1,000 unit PO DAILY RF: 0 cyanocobalamin-cobamamide 1 EACH tablet, sublingual 1 ea Sublingual DAILY RF: 0 levothyroxine 137 mcg tablet 137 mcg PO DAILY Qty: 90 RF: 3 ranitidine HCl 150 mg tablet 150 mg PO HS PRN (Reason: acid reflux) Qty: 90 RF: 4 fish,bora,flax oils-om3,6,9no1 [[place] 3-6-9 Complex] 400-400-400 mg Capsule 1 cap PO DAILY RF: 0 coenzyme Q10 [Co Q-10] 50 mg Capsule 50 mg PO DAILY RF: 0 Discontinued polyethylene glycol 3350 17 gram/dose powder 238 g PO ONCE Qty: 238 RF: 0 bisacodyl [Dulcolax (bisacodyl)] 5 mg tablet,delayed release (DR/EC) 5 mg PO ONCE Qty: 4 RF: 0 Discharge Instructions Additional Instructions: Findings: Your colonoscopy showed mild diverticulosis. No polyps were found. Follow up: Plan for a colonoscopy in 5 years Please call if you develop: fevers >101.5 Nausea or Vomiting Abdominal pain that is not transient DAY SURGERY UNIT POST COLONOSCOPY INSTRUCTIONS 1. Because there will be medication in your system for the next 24 hours, you may feel a little sleepy. Your coordination will be affected. Therefore: a. Do not drive or operate dangerous equipment for 24 hours. b. Do not drink alcohol beverages for 24 hours (not even beer). c. Plan to go home and rest for the day. 2. Generally there are no restrictions on your activity after a day or so has gone by, but you may feel a bit fatigued for a few days. 3 After you arrive home you may have a light meal and return to a normal diet as you can tolerate it without feeling sick to your stomach. 4. After surgery, you may feel pain or discomfort. This should be only transient, but if it persists please contact your doctor. 5. If there are any questions regarding the findings of your procedure, please feel free to contact your doctor. 6. If you are unable to contact your doctor with a problem, contact the hospital at [phone]. 7. Continue all your regular medications unless directed otherwise. I understand the above instructions and have no questions. Signature of Patient or Responsible Adult Escort Date/Time Name of Responsible Adult Escort Signature of Nurse Date/Time Referrals: Argelia Carpenter NP [Primary Care Provider] - (Make an appointment in the next few weeks to discuss your recent chest pain.) Activity:: Activity as Tolerated Diet:: As Tolerated Discharge Orders Discharge Orders: Discharge Order (Routine); Ordered 07/03/19 Ordered By: Reina Reinoso DS: Diagnosis Discharge Diagnosis (1) History of colon polyps: Status: Acute (2) Diverticulosis: Status: Acute
[2019-07-03 09:30] VITALS: BP 99/35; PULSE 73; RESP 16; TEMP 36.4; O2SAT 96
--- NOTE | 2019-07-03 14:01 | COLE_ITS ---
DATE OF PROCEDURE: July 03, 2019 PREOPERATIVE DIAGNOSIS: History of colon polyps. POSTOPERATIVE DIAGNOSIS: Mild diverticulosis. PROCEDURE: Colonoscopy. SURGEON: Reina Reinoos M.D. ANESTHESIA: General. INDICATIONS: This is a 74-year-old woman whose last colonoscopy in 2013 showed polyps. This was don e in [place] so I do not have the pathology results to review. She is asymptomatic and has a fam gary history of colon cancer in her paternal uncle. PROCEDURE: She was placed in the left Abarca position. Propofol was titrated to sedation. Digital re ctal examination revealed no abnormalities. The scope was advanced to the cecum without difficulty. Her prep was excellent. The ileocecal valve and appendiceal orifice were clearly identified. The s cope was slowly withdrawn with no abnormalities seen within the ascending, transverse, descending, si gmoid colon or rectum, including on retroflex view. She was noted to have mild sigmoid diverticulosi s. She tolerated the procedure well and was stable to recovery. Due to her history of polyps of unknown type, she should consider a follow-up colonoscopy again in fi ve years. cc: Argelia Carpenter M.D.
== END 2019-07-03 10:16 | disposition home or self-care (01) ==
PROVIDERS: PCP Nurse Practitioner Family; Visit Provider Surgery
PROC: 0DJD8ZZ Inspection of Lower Intestinal Tract, Via Natural or Artificial Opening Endoscopic (ICD-10-PCS; CPT 45378; principal; 2019-07-03 08:15)
DX: Z12.11 Encounter for screening for malignant neoplasm of colon (principal); Z86.010 Personal history of colon polyps; K57.30 Diverticulosis of large intestine without perforation or abscess without bleeding; K21.9 Gastro-esophageal reflux disease without esophagitis
CPT/HCPCS: G0121; NC

== ENCOUNTER 2020-02-12 22:24 | Outpatient (REF) | payer MEDICARE, OTHER, SELFPAY ==
[2020-02-12 21:26] LABS: Anion Gap 7.9 mmol/L (3-11); BUN 19 mg/dL (7-18); CO2 27.1 mmol/L (21.0-32.0); CREATININE 0.74 mg/dL (0.55-1.02); Calcium 9.3 mg/dL (8.5-10.1); Calculated LDL 119 mg/dL (<100); Chloride 103 mmol/L (98-107); Cholesterol 213 mg/dL (<200); Glucose 93 mg/dL (74-106); HDL Cholesterol 61 mg/dL (40-60); Potassium 4.2 mmol/L (3.5-5.1); Sodium 138 mmol/L (136-145); TSH 0.39 uIU/mL (0.36-3.74); Triglyceride 169 mg/dL (<150)
[2020-02-12 21:43] LABS: FREE T4 1.45 ng/dL (0.76-1.46)
== END 2020-02-12 22:44 ==
LOC: LBN 22:24
PROVIDERS: PCP Nurse Practitioner Family; Visit Provider Nurse Practitioner Family
DX: E03.9 Hypothyroidism, unspecified (principal); E78.5 Hyperlipidemia, unspecified
CPT/HCPCS: 80048; 80061; 84439; 84443

== ENCOUNTER 2020-07-14 01:42 | Outpatient (CLI) | payer MEDICARE, OTHER, SELFPAY ==
--- NOTE | 2020-07-14 06:58 | DI.MAMMO_ITS ---
EXAM: MG MAMMO SCREENING 60 MIN DUR CLINICAL HISTORY: breast cancer screening,PERSONAL H/O BREAST CA TECHNIQUE: Mammograms were interpreted according to the usual protocol including computer analysis w [employer] CAD system, tomosynthesis and C-view imaging. COMPARISON: 2011 through 2018 FINDINGS: The patient is status post left mastectomy. The right breast are composed of scattered fibroglandula r densities, Breast Density category B. No suspicious masses or suspicious microcalcifications are seen. No skin thickening or abnormal axillary lymph nodes are seen. There has been no significant change from prior exams. IMPRESSION: BI-RADS Category 1, Negative mammogram Yearly screening mammography is recommended. Breast Density - Category B, scattered fibroglandular densities. A negative radiographic report should not delay biopsy if a dominant or clinically suspicious mass is present. Up to ten percent of cancers are not identified on mammography. A negative report may reinforce clinical impression. Adenosis and dense breasts may obscure an underlying neoplasm. False positive reports average 6 to 10%. Patient will receive a letter notifying them of these results.
== END 2020-07-14 01:43 ==
LOC: DI 01:43
PROVIDERS: PCP Nurse Practitioner Family; Visit Provider Nurse Practitioner Family
DX: Z12.31 Encounter for screening mammogram for malignant neoplasm of breast (principal); Z85.3 Personal history of malignant neoplasm of breast
CPT/HCPCS: 77063; 77067

== ENCOUNTER 2021-04-18 08:43 | Outpatient (CLI) | payer MEDICARE, OTHER, SELFPAY ==
[2021-04-18 12:44] LABS: Anion Gap 5.2 mmol/L (3-11); BUN 19 mg/dL (7-18); CO2 32.8 mmol/L (21.0-32.0); CREATININE 0.8 mg/dL (0.55-1.02); Calcium 9.7 mg/dL (8.5-10.1); Chloride 107 mmol/L (98-107); FREE T4 1.35 ng/dL (0.76-1.46); Glucose 96 mg/dL (74-106); Sodium 145 mmol/L (136-145); TSH 0.88 uIU/mL (0.36-3.74)
== END 2021-04-18 08:44 | disposition home or self-care (01) ==
LOC: LBO 08:43
PROVIDERS: PCP Nurse Practitioner Family; Visit Provider Nurse Practitioner Family
DX: E78.5 Hyperlipidemia, unspecified (principal); E03.9 Hypothyroidism, unspecified
CPT/HCPCS: 36415; 80048; 84439; 84443

== ENCOUNTER 2021-07-18 00:44 | Outpatient (CLI) | payer MEDICARE, OTHER, SELFPAY ==
--- NOTE | 2021-07-18 07:00 | DI.MAMMO_ITS ---
Exam(s) MG MAMMO SCREENING 60 MIN DUR EXAM: MG MAMMO SCREENING 60 MIN DUR CLINICAL HISTORY: breast cancer screening,H/O LT BREAST CA,Z12.39,Z85.3. TECHNIQUE: Unilateral right full field digital CC and MLO mammographic images were obtained with 3D tomosynthesis and utilizing computer aided detection (CAD). This patient has had prior left mastectom y. COMPARISON: Prior mammograms were reviewed, the most recent being July 2020. There has been prior left mastectomy. FINDINGS: There has been no significant change in the appearance and distribution of the fibroglandular tissue in the right breast. On 3D MLO imaging there is a skin mole on the lateral aspect of the breast noted There are no new spiculated masses nor malignant appearing microcalcification groups. There is no significant architectural distortion nor skin thickening-retraction. IMPRESSION: No radiographic evidence of malignancy in the right breast. BI-RADS Category 1 - Negative Breast Density - Category B - Scattered areas of fibroglandular density Breast density Category C or D implies that the patient has dense breast tissue. Dense breast tissue can make it harder to find cancer on a mammogram. Dense breast tissue is also associated with an incr eased risk of breast cancer. This information about the result of the mammogram report was provided to the patient to raise their awareness. Use this report when you speak with the patient about their risks for breast cancer, which includes their family history. At that time, you may recommend additional screening tests (Ultrasoun d or MRI) as these tests may add significant information. A negative radiographic report should not delay biopsy if a dominant or clinically suspicious mass is present. Up to ten percent of cancers are not identified on mammography. A negative report may reinforce clinical impression. Adenosis and dense breasts may obscure an underlying neoplasm. False positive reports average 6 to 10%. Patient will receive a letter notifying them of these results.
== END 2021-07-18 01:04 ==
PROVIDERS: PCP Nurse Practitioner Family; Visit Provider Nurse Practitioner Family
DX: Z12.31 Encounter for screening mammogram for malignant neoplasm of breast (principal); Z85.3 Personal history of malignant neoplasm of breast; Z90.12 Acquired absence of left breast and nipple
CPT/HCPCS: 77063; 77067

== ENCOUNTER 2021-10-19 10:16 | Outpatient (CLI) | payer MEDICARE, OTHER, SELFPAY ==
--- NOTE | 2021-10-19 09:00 | DI.RAD_ITS ---
Exam(s) XR KNEE RT 3V AP,LAT,SALOME EXAM: XR KNEE RT 3V AP,LAT,SALOME CLINICAL HISTORY: pain in right knee. TECHNIQUE: 2D digital imaging was performed of the right knee. Three views obtained. AP, lateral an d PA tunnel views were obtained. COMPARISON: No exams were available for comparison FINDINGS: BONES: No acute fracture is present. No bony destructive lesion is seen. JOINTS: The knee is normally aligned. No joint effusion is seen. Moderately severe tricompartment deg enerative changes are present. Findings include joint space narrowing and periarticular spurring. T he findings are most marked in the patellofemoral joint. SOFT TISSUE: Normal. IMPRESSION: Moderately severe degenerative changes of the right knee. DATA REPOSITORY: RADIATION DOSE DELIVERED:
== END 2021-10-19 10:17 | disposition home or self-care (01) ==
LOC: DIORS 10:16
PROVIDERS: PCP Nurse Practitioner Family; Referring Provider Nurse Practitioner Family; Visit Provider Physician Assistant Surgical
DX: M17.11 Unilateral primary osteoarthritis, right knee (principal)
CPT/HCPCS: 73562; 99214

== ENCOUNTER 2021-10-27 02:02 | Outpatient (CLI) | payer MEDICARE, OTHER, SELFPAY ==
[2021-10-27 15:07] LABS: Calculated LDL 105 mg/dL (<100); Cholesterol 201 mg/dL (<200); HDL Cholesterol 69 mg/dL (40-60); TSH 0.98 uIU/mL (0.36-3.74); Triglyceride 138 mg/dL (<150)
== END 2021-10-27 02:03 | disposition home or self-care (01) ==
LOC: LBO 02:03
PROVIDERS: PCP Nurse Practitioner Family; Visit Provider Nurse Practitioner
DX: E78.5 Hyperlipidemia, unspecified (principal); K21.9 Gastro-esophageal reflux disease without esophagitis
CPT/HCPCS: 80061; 83735; 84443

== ENCOUNTER 2021-10-31 07:12 | Outpatient (CLI) | payer MEDICARE, OTHER, SELFPAY ==
--- NOTE | 2021-11-01 15:44 | W.NUTCONSULT ---
Date of service: 11/01/21 Time of Service: 14:44 Nutritional Consult ASSESSMENT: Neisha was referred to weight management education . She reports gaining about 50 pounds in last 10 years due to less activity and not following healthy meal guidelines. She had a knee replacement in 2019 but needs her other knee replaced. Exercise is not an option at this time. She has a hx of breast cancer. Lives alone, however, her daughter lives close by. 5'1 220 lbs, BMI: 40 Diet Recall: usually skips breakfast, has cookies at 4 pm and a dinner usually late- often has crackers and cheese for dinner. Does not like to prepare meals. Avoids red meat and pork. Does not eat out much. NUTRITIONAL DIAGNOSIS: class 3 obesity with BMI of 40 Inadequate intake of macronutrients such as protein and healthy fats INTERVENTION: Educated Neisha on how to follow a 5052-1214 kcal meal plan with emphasis on complex carbs, lean protein and healthy fats. Encouraged her to log meals into leon to be sure she is getting at least 50 grams of protein daily. Reviewed importance of protein in diet for strength and independence. Encouraged her to find exercise options such as pool exercises or simple weight lifting at home. MONITORING AND EVALUATION: no follow up planned at this time. Time Spent in Nutritional Counseling and Treatment: 30
== END 2021-10-31 07:13 | disposition home or self-care (01) ==
LOC: LBO 07:12
PROVIDERS: PCP Nurse Practitioner Family

== ENCOUNTER → 2021-12-08 00:49 | Outpatient (CLI) | payer MEDICARE, OTHER, SELFPAY ==
--- NOTE | 2021-12-08 09:17 | DI.DEXA_ITS ---
Exam(s) XR DEXA BONE DENSITY W/WO JESSY EXAM: XR DEXA BONE DENSITY W/WO JESSY CLINICAL HISTORY: ScreenING FOR OSTEOPOROSIS IN POSTMENOPAUSAL WOMAN,Z78.0 TECHNIQUE: [employer] [facility] C densitometer analysis of left hip, lumbar spine and left forearm. COMPARISON: 2018 FINDINGS: Lateral view of the thoracic and lumbar spine shows no evidence of compression fractures. There are severe degenerative disc changes as well as scoliosis. There are endplate osteophytes and endplate s clerosis which elevates the bone mineral density measurements. Bone mineral density measurements of the lumbar spine correspond to a total T-score of 2.1, in the n ormal range. This represents a 15.8 percent increase compared to prior. The findings may be seconda ry to worsening of degenerative changes. Bone mineral density measurements of the left hip correspond to a total T-score of -1.4. The femora l neck T-score is -1.7, in the osteopenic range. This is not significantly changed from prior.. The left forearm bone mineral density measurements correspond to a T-score of the distal 3rd of -3.0 , in the osteoporotic range. This represents a 4.2 percent decrease from prior but is not statistica lly significant.. IMPRESSION: Osteoporosis of the left forearm. Osteopenia of the left hip. Bone mineral density of the lumbar sp ine is within the normal range.
== END ==
PROVIDERS: PCP Nurse Practitioner Family; Visit Provider Nurse Practitioner
DX: Z78.0 Asymptomatic menopausal state (principal); Z13.820 Encounter for screening for osteoporosis; M81.0 Age-related osteoporosis without current pathological fracture; M85.88 Other specified disorders of bone density and structure, other site
CPT/HCPCS: 77080

== ENCOUNTER 2022-07-20 00:42 | Outpatient (CLI) | payer MEDICARE, OTHER, SELFPAY ==
--- NOTE | 2022-07-20 07:45 | DI.MAMMO_ITS ---
Exam(s) MG MAMMO SCREENING 60 MIN DUR EXAM: MG MAMMO SCREENING 60 MIN DUR CLINICAL HISTORY: breast cancer screening,PERSONAL H/O BREAST CA,Z85.4,Z12.39 TECHNIQUE: Right cc and MLO mammogram images were performed according to the usual protocol includ ing computer analysis with CAD system, tomosynthesis and C-view imaging. COMPARISON: 2012 through 2021 FINDINGS: The patient is status post left mastectomy. The right breast is composed of scattered fibroglandular densities, Breast Density category B. No suspicious masses or suspicious microcalcifications are seen. No skin thickening or abnormal axillary lymph nodes are seen. IMPRESSION: BI-RADS Category 1, Negative mammogram Yearly screening mammography is recommended. Breast Density - Category B, scattered fibroglandular densities. A negative radiographic report should not delay biopsy if a dominant or clinically suspicious mass is present. Up to ten percent of cancers are not identified on mammography. A negative report may reinforce clinical impression. Adenosis and dense breasts may obscure an underlying neoplasm. False positive reports average 6 to 10%. Patient will receive a letter notifying them of these results.
== END 2022-07-20 01:02 ==
LOC: DI 00:42
PROVIDERS: PCP Nurse Practitioner Family; Visit Provider Nurse Practitioner Family
DX: Z12.31 Encounter for screening mammogram for malignant neoplasm of breast (principal); Z85.3 Personal history of malignant neoplasm of breast
CPT/HCPCS: 77063; 77067

== ENCOUNTER 2022-08-23 04:14 | Outpatient (CLI) | payer MEDICARE, OTHER, SELFPAY ==
[2022-08-23 14:16] LABS: HCT 44.7 % (36.0-46.0); HGB 14.3 g/dL (11.2-15.7); MCV 88 fL (80-95); MPV 8.6 fL (8.0-11.0); Platelet Count 252 10^3/uL (130-400); RBC 5.11 10^6/uL (3.93-5.22); WBC 8.16 10^3/uL (4.4-10.8)
[2022-08-23 15:22] LABS: Anion Gap 4.4 mmol/L (3-11); BUN 17 mg/dL (7-18); CO2 32.6 mmol/L (21.0-32.0); CREATININE 0.9 mg/dL (0.55-1.02); Calcium 9.5 mg/dL (8.5-10.1); Chloride 103 mmol/L (98-107); Estimated GFR 66.67 (mL/min/1.73m2); Glucose 73 mg/dL (74-106); Potassium 3.8 mmol/L (3.5-5.1); Sodium 140 mmol/L (136-145)
== END 2022-08-23 04:15 | disposition home or self-care (01) ==
LOC: LBO 04:14
PROVIDERS: PCP Nurse Practitioner Family; Visit Provider Student in an Organized Health Care Education/Training Program
DX: Z01.818 Encounter for other preprocedural examination
CPT/HCPCS: 36415; 80048; 85027; 73560; 77073

== ENCOUNTER 2022-08-23 14:25 | Outpatient (CLI) | payer MEDICARE, OTHER, SELFPAY ==
--- NOTE | 2022-08-23 12:45 | DI.RAD_ITS ---
Exam(s) XR STANDING ALIGNMENT XR KNEE RT 1V EXAM: XR STANDING ALIGNMENT and XR knee RT 1 V CLINICAL HISTORY: PRE OP R TKA. TECHNIQUE: 2D digital imaging was performed. Five images were obtained. COMPARISON: CR XR standing alignment from 10/09/2018 FINDINGS: BONES: The hips are well maintained. Degenerative changes are seen in the right knee characterized b y joint space narrowing and periarticular spurring in all 3 joint compartments. There is no joint ef fusion in the right knee. There are stable postsurgical changes of a left total knee arthroplasty. The ankles are well maintained.There is no significant leg length discrepancy. SOFT TISSUE: Normal. IMPRESSION: Marked osteoarthritis of the right knee. DATA REPOSITORY: RADIATION DOSE DELIVERED:
== END 2022-08-23 14:26 | disposition home or self-care (01) ==
LOC: DIORS 14:26
PROVIDERS: PCP Nurse Practitioner Family; Visit Provider Physician Assistant
DX: M17.11 Unilateral primary osteoarthritis, right knee (principal); Z01.818 Encounter for other preprocedural examination
CPT/HCPCS: 73560; 77073

== ENCOUNTER 2022-09-04 08:13 | Day surgery (SDC) | payer MEDICARE, OTHER, SELFPAY ==
[2022-09-04] VITALS (13 sets, daily range): BP systolic 101–129; BP diastolic 45–84; PULSE 71–89; RESP 12–19; TEMP 36.1–37.1; O2SAT 92–97; BMI 39.7
--- NOTE | 2022-09-04 09:14 | HPE_ITS ---
Assessment and Plan Assessment and plan (1) Primary osteoarthritis of right knee: Status: Acute Assessment and plan: Neisha Seay is a 77-year-old who has severe arthritis about the right knee with a valgus deformity. She has had an excellent result with her left knee and she desires to have decreased pain and better function about the right side. She has discussed with me in the past as well as recent with my PAs. She is anxious to move forward with knee replacement. I did review this once again with her. I reviewed the risk to include bleeding, infection, pain, stiffness, damage nerves and vessels, damage to muscle tendons, instability, hardware loosening, fracture, blood clot. Despite these risks, she elects to proceed. History of Present Illness History of Present Illness Chief Complaint: Right Knee Pain Narrative: Neisha Seay is well-known to me for her bilateral knees. She underwent a left knee replacement with excellent results. She had plan to have the right knee replaced but decided to wait. The COVID pandemic also changed her plans. She has been dealing with the pain for quite some time and now desires to have the right side replaced. She has seen the PAs in the office and has discussed this with me on multiple occasions. She has had an excellent result of the left knee and wants to proceed with the right knee. She denies any changes to her health. She does feel that the valgus deformity of her right knee has worsened. She has pain throughout the right knee limiting all weightbearing activities. No new trauma. No numbness or tingling. Review of Systems All systems reviewed & are unremarkable except as noted in HPI and below PFSH All Active Problems (Updated 09/05/22 @ 16:45 by Carson Shelley MD) Primary osteoarthritis of right knee (Acute) R TKA 09/03/22 Corticosteroid injection: 02/24/18 History of left breast cancer (Chronic ~1992) 1992 s/p chemo, radiation, lumpectomy, tamoxifen. Recurrence in 2018 s/p total mastectomy Osteoporosis (Chronic) Completed 4 years of fosamax, declines further medications Hypothyroidism (Chronic) Hyperlipidemia (Chronic) Gastroesophageal reflux disease (Chronic) Chronic low back pain (Chronic) Right lumbar radiculopathy, L5-S1 isthmus spondylolisthesis Urge incontinence (Chronic) Obesity (Chronic) Sensorineural hearing loss (SNHL) (Chronic) Sigmoid diverticulosis (Chronic) Medical History (Updated 09/05/22 @ 16:45 by Carson Shelley MD) Malignant neoplasm of left breast 1992 s/p chemo, radiation, lumpectomy, tamoxifen. 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 12/17 Surgical History H/O total mastectomy of left breast (06/27/18) S/P colonoscopy (06/19/13) S/P tonsillectomy and adenoidectomy Status post left breast lumpectomy (1992) Status post left knee replacement (09/25/18) Family History Mother , at 88 Hyperlipidemia Osteoarthritis Atrial fibrillation Heart disease Depression Father , at 77 Heart disease Hypertension Myocardial infarction Son No problems noted. Daughter No problems noted. Maternal Grandfather , at 65 Brain cancer Type 2 diabetes mellitus Maternal Grandmother , at 81 No problems noted. Paternal Grandfather , at 50 Throat cancer Paternal Grandmother , at 84 Heart disease Social History (Updated 10/26/21 @ 13:16 by Katia Hernandez) Smoking/Tobacco Use Status: Former Tobacco Use tobacco type: cigarettes Quit Date: 06/03/70 Tobacco: How many years used: 6 Smoking risk assessment performed?: Yes Alcohol Intake: current Alcohol Intake frequency: a few times a week Alcohol type: wine Drug use: Never Substance use type: does not use Details: alcohol: 2 nights ago 1 glass of wine Household members: none Housing: house Communication Needs: Hard of Hearing and Corrective Lenses Do you need help understanding health information?: Never Pets and animals: Yes Pets and animals: cat(s) and dog(s) Sexually active: No Do you think of yourself as: straight/heterosexual Current gender identity: female What is your relationship status?: How often do you talk on the phone with friends or family?: three or more times per week How often do you get together with friends or relatives?: once per week How often do you attend restorationism or spiritism services?: 1-3 times per year Do you belong to any clubs or organized social groups?: yes Panel score (0-1 are the most socially isolated patients): 2 What type of physical activity do you participate in: weight lifting Duration: 30-45 minutes/day Frequency: 1-2 times per week Janette/Scientology: None Seatbelt use: always Helmet use: No Drive intox or ride w/intox class a regional truck driver: No Do you feel safe at home: Yes Additional Social history: lives alone, unable to assess privatly. History History 4 Para 2 Hx # Term Pregnancies Multiple births Hx # Pregnancies Ectopic pregnancies AB induced 2 Hx Number of Living Children 2 AB spontaneous Meds Allergies and Home Medications Allergies Allergy/AdvReac Type Severity Reaction Status Date / Time coconut oil AdvReac Unknown hives Verified 09/04/22 08:47 cyclobenzaprine AdvReac Unknown Psychosis Verified 09/04/22 08:47 lanolin AdvReac Unknown hives Verified 09/04/22 08:47 naproxen AdvReac Unknown hives Verified 09/04/22 08:47 paraben AdvReac Unknown hives Verified 09/04/22 08:47 Home Medications Medication Instructions Recorded Confirmed Type s-adenosylmethionine 200 mg tablet 200 mg PO DAILY 07/01/15 09/04/22 History (John-E) cholecalciferol (vitamin D3) 25 1,000 unit PO DAILY 07/04/15 09/04/22 History mcg (1,000 unit) capsule (Vitamin D3) multivitamin (Multi-Day tablet) 1 ea PO DAILY 07/04/15 09/04/22 History cyanocobalamin (B12)-cobamamide 1 ea sublingual DAILY 08/29/17 09/04/22 History 5,000 mcg-100 mcg sublingual tablet fish, borage, flaxseed oils-omega 1 cap PO DAILY 09/19/18 09/04/22 History 3,6,9 cb #1 400 mg-400 mg-400 mg cap ([place] 3-6-9 Complex) coenzyme Q10 50 mg capsule (Co 50 mg PO DAILY 09/25/18 09/04/22 History Q-10) magnesium 250 mg tablet 300 mg PO .every other day 05/16/22 09/04/22 History omeprazole 20 mg capsule,delayed 20 mg PO DAILY #90 caps 05/16/22 09/04/22 Rx release rosuvastatin 20 mg tablet (Crestor) 20 mg PO HS #90 tabs 05/16/22 09/04/22 Rx levothyroxine 137 mcg tablet 137 mcg PO DAILY #90 tab-caps 08/27/22 09/04/22 Rx acetaminophen 500 mg tablet 1,000 mg PO Q8H PRN pain #90 tabs 09/04/22 Rx aspirin 81 mg tablet,delayed 81 mg PO BID 30 days #60 tabs 09/04/22 Rx release celecoxib 200 mg capsule (Celebrex) 200 mg PO BID PRN #60 caps 09/04/22 Rx dexamethasone 4 mg tablet 4 mg PO DAILY #2 tabs 09/04/22 Rx docusate sodium 100 mg capsule 100 mg PO BID #30 caps 09/04/22 Rx (Colace) gabapentin 300 mg capsule 300 mg PO QHS #14 caps 09/04/22 Rx oxycodone 5 mg tablet 5 mg PO Q4H PRN #18 tabs 09/04/22 Rx Exam Resp Effort & Inspection: normal respiratory effort Auscultation: clear to auscultation bilaterally Cardio Rate: regular rate Rhythm: regular rhythm Extrem Other: Evaluation of the right knee shows a notable valgus deformity. This is mostly correctable with varus stress although still with some mild valgus attitude. Significant pain along the lateral joint line but also throughout the entirety of the knee. Crepitus with range of motion. Range of motion is approximate 5 to 105 degrees. 5 out of 5 knee extension strength. Results Imaging Imaging Studies: Previous x-ray of the right knee with standing alignment shows a valgus deformity of the right knee with severe arthritis with notable deformity of the tibia as well as osteophytes, subchondral sclerosis, and joint space narrowing. Last Vital Signs Temp 36.6 C 09/04/22 09:40 Pulse 75 09/04/22 09:40 Resp 16 09/04/22 09:40 BP 109/69 09/04/22 09:40 Pulse Ox 95 09/04/22 09:40
[2022-09-04] MEDS: Gabapentin 300 MG CAP PO (09:21)
[2022-09-04] MEDS: Celecoxib 200 MG CAP 400 MG PO (09:21)
[2022-09-04] MEDS: Acetaminophen 500 MG TAB 1000 MG PO (09:21)
[2022-09-04] MEDS: Lactated Ringers 1,000 ML 80 ML IV (09:25)
--- NOTE | 2022-09-04 09:27 | W.ANESPRE ---
General Info Date of Service Date Performed: 09/04/22 Height: 5 ft 1 in Weight: 95.4 kg Body Mass Index (BMI): 39.7 Surgical Procedure: Operation Date: 09/04/22 11:40 Proposed Procedure Side Surgeon p Knee Total Arthroplasty, Cemented PS Right Carson Shelley MD Meds Allergies and Home Medications Allergies Allergy/AdvReac Type Severity Reaction Status Date / Time coconut oil AdvReac Unknown hives Verified 09/04/22 08:47 cyclobenzaprine AdvReac Unknown Psychosis Verified 09/04/22 08:47 lanolin AdvReac Unknown hives Verified 09/04/22 08:47 naproxen AdvReac Unknown hives Verified 09/04/22 08:47 paraben AdvReac Unknown hives Verified 09/04/22 08:47 Home Medication Medication Instructions Recorded s-adenosylmethionine 200 mg tablet 200 mg PO DAILY 07/01/15 (John-E) cholecalciferol (vitamin D3) 25 1,000 unit PO DAILY 07/04/15 mcg (1,000 unit) capsule (Vitamin D3) multivitamin (Multi-Day tablet) 1 ea PO DAILY 07/04/15 cyanocobalamin (B12)-cobamamide 1 ea sublingual DAILY 08/29/17 5,000 mcg-100 mcg sublingual tablet fish, borage, flaxseed oils-omega 1 cap PO DAILY 09/19/18 3,6,9 cb #1 400 mg-400 mg-400 mg cap ([place] 3-6-9 Complex) coenzyme Q10 50 mg capsule (Co 50 mg PO DAILY 09/25/18 Q-10) aspirin 81 mg tablet,delayed 81 mg PO DAILY 04/16/19 release (Aspir-) magnesium 250 mg tablet 300 mg PO .every other day 05/16/22 omeprazole 20 mg capsule,delayed 20 mg PO DAILY #90 caps 05/16/22 release rosuvastatin 20 mg tablet (Crestor) 20 mg PO HS #90 tabs 05/16/22 celecoxib 100 mg capsule 100 mg PO DAILY PRN arthritis pain 08/27/22 #90 caps levothyroxine 137 mcg tablet 137 mcg PO DAILY #90 tab-caps 08/27/22 Current Visit Medications: Current Medications Generic Name Dose Route Start Last Admin Trade Name Freq PRN Reason Stop Dose Admin Acetaminophen 1,000 mg 09/04/22 06:00 09/04/22 09:21 Acetaminophen 500 Mg Tab PO 09/04/22 16:00 1,000 mg PREOP ANGELINE Administration Acetaminophen 1,000 mg 09/04/22 08:30 Acetaminophen 500 Mg Tab PO TID [facility] Aspirin 81 mg 09/04/22 08:30 Aspirin E.C. 81 Mg Tabec PO BID [facility] Celecoxib 400 mg 09/04/22 06:00 09/04/22 09:21 Celecoxib 200 Mg Cap PO 09/04/22 16:00 400 mg PREOP ANGELINE Administration Celecoxib 200 mg 09/04/22 08:30 Celecoxib 200 Mg Cap PO BID [facility] Dexamethasone 4 mg 09/04/22 08:30 Dexamethasone 4 Mg Tab PO 09/05/22 08:31 DAILY [facility] Docusate Sodium 100 mg 09/04/22 08:30 Docusate Sodium 100 Mg Cap PO BID PRN PRN Constipation Gabapentin 300 mg 09/04/22 06:00 09/04/22 09:21 Gabapentin 300 Mg Cap PO 09/04/22 16:00 300 mg PREOP ANGELINE Administration Hydromorphone HCl 0.5 mg 09/04/22 08:30 Hydromorphone 2 Mg/Ml Syr IVP Q2H PRN PRN Tranexamic Acid 1,000 mg/ 60 mls @ 360 mls/hr 09/04/22 06:00 Sodium Chloride IVPB 09/04/22 16:00 PREOP ANGELINE Ringer's Solution 1,000 mls @ 80 mls/hr 09/04/22 06:00 IV 10/03/22 23:59 INFUSION ANGELINE Cefazolin Sodium/Dextrose 2 gm in 50 mls @ 100 mls/hr 09/04/22 06:00 Ancef Duplex IVPB 09/04/22 16:00 PREOP ANGELINE Cefazolin Sodium/Dextrose 1 gm in 50 mls @ 100 mls/hr 09/04/22 08:00 Ancef Duplex IVPB 09/05/22 00:29 Q8H [facility] IV Miscellaneous Supplies 1 each 09/04/22 06:00 Iv Access IV 10/03/22 23:59 DIRECTED [facility] Ondansetron HCl 4 mg 09/04/22 08:30 Ondansetron 4 Mg/2 Ml Vial IVP Q6H PRN PRN Nausea Oxycodone HCl 0 mg 09/04/22 08:30 Oxycodone 5 Mg Tab PO Q3H PRN PRN Pain Polyethylene Glycol 17 gm 09/04/22 08:30 Polyethylene Glycol 3350 17 Gm Packet PO BID PRN PRN Constipation Sodium Chloride 0 ml 09/04/22 06:00 Normal Saline Flush 10 Ml Syr IV 10/03/22 23:59 PRN PRN Sodium Chloride 0 ml 09/04/22 06:00 Normal Saline 10 Ml Vial IJ 10/03/22 23:59 DIRECTED PRN Sterile Water 0 ml 09/04/22 06:00 Water,Injection,Sterile 10 Ml Vial IJ 10/03/22 23:59 DIRECTED PRN PFSH Active Problems Active Problems: Problem Status Onset Code Primary osteoarthritis of left knee M17.12 History of left breast cancer ~1992 Z85.3 Osteoporosis M81.0 Hypothyroidism E03.9 Hyperlipidemia E78.5 Gastroesophageal reflux disease K21.9 Chronic low back pain M54.5, G89.29 Urge incontinence Obesity E66.9 Sensorineural hearing loss (SNHL) H90.5 Sigmoid diverticulosis K57.30 Medical History Medical History Malignant neoplasm of left breast 1992 s/p chemo, radiation, lumpectomy, tamoxifen. 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 12/17 Medical History Comments:: pt states she takes a long time to wake up from anesthesia. Surgical History Surgical History H/O total mastectomy of left breast (06/27/18) S/P colonoscopy (06/19/13) S/P tonsillectomy and adenoidectomy Status post left breast lumpectomy (1992) Status post left knee replacement (09/25/18) Tobacco Smoking/Tobacco Use Status: Former Tobacco Use Passive smoking exposure: Yes Alcohol Alcohol Intake: current Alcohol intake frequency: a few times a week Alcohol type: wine Substance Use Substance use: Never Substance use type: does not use Details: alcohol: 2 nights ago 1 glass of wine Prental History History 4 Para 2 Hx # Term Pregnancies Multiple births Hx # Pregnancies Ectopic pregnancies AB induced 2 Hx Number of Living Children 2 AB spontaneous Vital Signs and Lab Results Vital Signs Most Recent Vital Signs in EMR: Most Recent Vital Signs Temp Pulse Resp BP Pulse Ox 37.1 C 84 16 129/81 97 09/04/22 09:04 09/04/22 09:04 09/04/22 09:04 09/04/22 09:04 09/04/22 09:04 Lab Results Blood Type / Crossmatch: No Data to Display Complete Blood Count: White Blood Count 8.16 10^3/uL (4.4-10.8) 08/23/22 14:14 Red Blood Count 5.11 10^6/uL (3.93-5.22) 08/23/22 14:14 Hemoglobin 14.3 g/dL (11.2-15.7) 08/23/22 14:14 Hematocrit 44.7 % (36.0-46.0) 08/23/22 14:14 Platelet Count 252 10^3/uL (130-400) 08/23/22 14:14 Complete Metabolic Panel: Sodium 140 mmol/L (136-145) 08/23/22 14:14 Potassium 3.8 mmol/L (3.5-5.1) 08/23/22 14:14 Chloride 103 mmol/L (98-107) 08/23/22 14:14 Carbon Dioxide 32.6 mmol/L (21.0-32.0) H 08/23/22 14:14 BUN 17 mg/dL (7-18) 08/23/22 14:14 Creatinine 0.9 mg/dL (0.55-1.02) 08/23/22 14:14 Est GFR (CKD-EPI 2020) 66.67 (mL/min/1.73m2) 08/23/22 14:14 Calcium 9.5 mg/dL (8.5-10.1) 08/23/22 14:14 Glucose 73 mg/dL (74-106) L 08/23/22 14:14 Liver Function Panel: No Data to Display Coagulation Panel: No Data to Display Cardiac Panel: No Data to Display Arterial Blood Gas: No Data to Display Venous Blood Gas: No Data to Display Pancreas Panel: No Data to Display Thyroid Panel: No Data to Display Infectious Disease: No Data to Display Blood Cultures: No Data to Display Toxicology Panel: No Data to Display Anesthesia Assessment and Plan Anesthesia History Personal History: No History of Anesthesia Complications Family History: No Family History of Anesthesia Complications Exercise Tolerance Exercise Tolerance: Metabolic Equivalents>4 Pertinent Negatives Pertinent Negatives: No Symptoms of GERD, No Major Cardiovascular Symptoms or Complaints, No Major Pulmonary Symptoms or Complaints and No History of CVA/TIA Cardiac & Pulmonary Exam Cardiac Exam: Normal S1/S2 Heart Sounds Pulmonary Exam: Clear Bilateral Breath Sounds Implantable Cardiac Device Does patient have a Pacemaker or an ICD?: No Airway Exam Known Difficult Airway: No Mallampati Class: 2 Mouth Opening: Normal (> 3cm) Thyromental Distance: Greater than 3 cm Neck Range of Motion: Full ROM Neck Circumference: Normal Teeth Condition: Normal Dentition and Removable Dentures/Plates Upper (partial) ASA Classification ASA Score: ASA 3 Emergency Case?: No NPO Status NPO Status: NPO Clears >2 hours, Solids >8 hours Anesthesia Plan Resuscitation Status: Full Code Anesthesia Technique: Spinal Anesthesia Airway Planned: Natural Airway Pain Management: Surgeon and patient request nerve block Monitors Used: Standard Monitors
--- NOTE | 2022-09-04 10:07 | W.ANESNERVE ---
Nerve Block Single Injection Procedure Date and Time Date Performed: 09/04/22 Procedure Start: 09:49 Location Where Procedure Performed Procedure Location: Day Surgery Unit Reason Performed: Postoperative Analgesia Requesting Provider: Carson Shelley Timeout Performed Timeout Performed: Yes Monitoring Used ECG, Blood Pressure, SpO2 and See EMR for corresponding vital signs Sterility Sterility: Hand Hygiene, Surgical Cap, Surgical Mask, Sterile Gloves, Sterile Drape/Sheet and Chlorhexidine Sedation Given During Procedure Sedation Given (Indicate Dose Given): Versed IV Dose:: 2 mg Patient Mental Status Patient Mental Status: Sedate with meaningful communication Nerve Block 1st Nerve Block: Laterality: Right Block Type: Adductor Canal Ultrasound Image Saved?: Yes Needle / Catheter Used: 100mm SonoPlex II Local Anesthetic Bolus (Indicate Dose Given): Lidocaine used for local infiltration of skin, Injected in 3-5ml increments after negative blood aspiration and Bupivacaine 0.25% Dose:: 15 ml Additives (Indicate Dose Given): None Ultrasound: Sterile probe cover and gel used Nerve Stimulator: Not Used Paresthesia: None Procedure Tolerated: No Complications and Patient tolerated well Procedure Outcome: Successful Procedure Comment: Post procedure states she feels tingling in inner knee down to right great toe, CMS intact. Performed By: Mónica Dejesus
[2022-09-04] MEDS: ceFAZolin 2 GM/50 ML BAG IVPB (10:35)
[2022-09-04] MEDS: fentaNYL 100 MCG/2 ML VIAL IVP (12:55)
--- NOTE | 2022-09-04 13:29 | W.ANESPOSTOP ---
Postoperative Evaluation Date, Time and Location Date Performed: 09/04/22 Time Performed: 13:29 Patient Location: PACU Vital Signs Most Recent Imported Vital Signs: Most Recent Vital Signs Temp Pulse Resp BP Pulse Ox 36.7 C 72 19 102/54 L 95 09/04/22 13:15 09/04/22 13:15 09/04/22 13:15 09/04/22 13:15 09/04/22 13:15 Pain Score Most Recent Pain Score: Most Recent Pain Score Pain Level 0 09/04/22 13:15 Assessment Mental Status: Awake (Alert & Oriented to Patient Baseline) Airway and Respiratory Function: Patent airway with normal (patient baseline) respiratory exam Cardiovascular Function: Hemodynamically Stable Hydration Status: Adequately Hydrated Nausea & Vomiting: No Nausea or Vomiting Pain: Pain is tolerable per patient Peripheral Nerve Block: Regional nerve block not resolved at time of post operative discharge
--- NOTE | 2022-09-04 15:04 | DSE_ITS ---
Date of service: 09/04/22 Time of Service: 15:10 DS: Diagnosis Discharge Diagnosis (1) Primary osteoarthritis of right knee: Status: Resolved Discharge Plan Disposition Patient Disposition: Home Condition: Good Discharge Details Reason For Visit: Right knee DJD Attending Provider: Carson Shelley Primary Care Provider: Argelia Carpenter Home Meds and New Rx's Prescriptions: New acetaminophen 500 mg tablet 1,000 mg PO Q8H PRN Qty: 90 0RF Rx Instructions: Take two tablets up to every 8 hours as needed for pain aspirin 81 mg tablet,delayed release (DR/EC) 81 mg PO BID 30 Days Qty: 60 0RF celecoxib [Celebrex] 200 mg capsule 200 mg PO BID PRNQty: 60 0RF Rx Instructions: Take one tablet twice daily for pain and inflammation docusate sodium [Colace] 100 mg capsule 100 mg PO BID Qty: 30 0RF dexamethasone 4 mg tablet 4 mg PO DAILY Qty: 2 0RF Rx Instructions: Take one tablet once daily for two days gabapentin 300 mg capsule 300 mg PO QHS Qty: 14 0RF Rx Instructions: Take one tablet at bedtime oxycodone 5 mg tablet 5 mg PO Q4H PRNQty: 18 0RF Rx Instructions: Take one tablet up to every 4 hours as needed for severe postoperative pain Continued magnesium 250 mg tablet 300 mg PO .every other day rosuvastatin [Crestor] 20 mg tablet 20 mg PO HS Qty: 90 3RF omeprazole 20 mg capsule,delayed release(DR/EC) 20 mg PO DAILY Qty: 90 3RF John-E 200 MG tablet 200 mg PO DAILY multivitamin [Multi-Day] 1 EACH tablet 1 ea PO DAILY cholecalciferol (vitamin D3) [Vitamin D3] 1,000 UNIT capsule 1,000 unit PO DAILY Patient Comments: cyanocobalamin-cobamamide 1 EACH tablet, sublingual 1 ea Sublingual DAILY levothyroxine 137 mcg tablet 137 mcg PO DAILY Qty: 90 3RF Rx Instructions: Administer in the morning on an empty stomach, at least 30-60 minutes before food. fish,bora,flax oils-om3,6,9no1 [Amber 3-6-9 Complex] 400-400-400 mg Capsule 1 cap PO DAILY coenzyme Q10 [Co Q-10] 50 mg Capsule 50 mg PO DAILY Discontinued aspirin [Aspir-81] 81 mg tablet,delayed release (DR/EC) 81 mg PO DAILY celecoxib 100 mg capsule 100 mg PO DAILY PRN (Reason: arthritis pain) Qty: 90 3RF Discharge Instructions Additional Instructions: Total Knee Discharge Instructions Activity: The most important activity is to walk and to work on gentle motion (both flexion and extension). You should try to take short walks a few times a day. It is important that when resting you work on keeping the knee straight. Avoid putting a pillow behind the knee as this will encourage flexion. Work on range of motion exercises as provided by Physical Therapy. - Start outpatient physical therapy within 2 weeks. - You should wear the BAN hose on both legs for 2 weeks. You may remove these at night. You may also use any compression sock in place of the BAN hose. - Utilize [employer] to review exercises, see videos on exercises and obtain basic information pertaining to your surgery and your recovery. Dressing: Remove the Chuy wrap by 2 days after your surgery and put on the BAN stocking given to you from the hospital. Keep the surgical dressing (underneath the CHUY wrap) in place for at least one week. After the first week it may be removed and replaced with light gauze and tape or nothing. The wound and dressing may get wet after 3 days but avoid soaking the dressing or otherwise it will need to be changed. Many people prefer covering the dressing with cling wrap (saran wrap) to minimize it from getting soaked. If it gets wet, just pat dry. If it starts to peel off then it will need to be changed. Medications: - You should take Tylenol and anti-inflammatory Celebrex as your primary pain control medications. If the Celebrex is too expensive or not covered, please call the office for another alternative (Advil/Ibuprofen or Naproxen/Aleve) - You have been prescribed a stronger pain medication Oxycodone for breakthrough pain, take as needed as prescribed. - You take a stomach acid reduction agent Omeprazole to help reduce stomach acid and reflux. - You have been prescribed Gabapentin to take at night for restlessness and nerve pain. - You will be taking Aspirin 81mg twice a day for DVT prevention unless instructed otherwise. - You have also been prescribed Decadron to take to control post-operative nausea and pain. You will start this tomorrow. - If you have constipation you should take Colace (which has been prescribed) or Miralax (which is available [id number]). It takes most people 3-4 days to have a bowel movement. Follow-up: 2 weeks If you have any acute concerns or questions, please do not hesitate to contact the office at [phone]. You may contact Dr. Shelley with any questions after hours through the hospital at [phone] or on his cell phone at [phone]. Referrals: Carson Shelley MD [ [facility] STAFF PHYSICIAN] - Equipment/Supplies: Walker Activity:: Elevate Remove Dressings/Wound Care:: Do Not Remove Shower/Bathe:: Cover Diet:: As Tolerated Discharge Orders Discharge Orders: Discharge Order (Routine); Ordered 09/04/22 Ordered By: Carson Shelley DS: Summary Time Spent with Patient providing and/or coordinating discharge services: Less than 30 minutes Status at Discharge Functional status at discharge: uses cane/walker Overall status at discharge: patient is progressing back to baseline Mental Status: mental status grossly normal Speech and Movement: speech and movement normal Mood: congruent mood Affect: normal affect Exam Psych Mental Status: mental status grossly normal Speech and Movement: speech and movement normal Mood: congruent mood Affect: normal affect DS: Data Vitals/I&O Vitals and I&O: Vital Signs Temperature 97.0 F L 09/04/22 14:32 Temperature Source Temporal Artery Scan 09/04/22 09:40 Pulse 80 09/04/22 14:32 Pulse Rhythm Regular 09/04/22 09:04 Respiratory Rate 18 09/04/22 14:32 Respiratory Depth Normal 09/04/22 09:04 Blood Pressure 107/62 09/04/22 14:32 Blood Pressure Mean 82 09/04/22 09:40 Blood Pressure Position Supine 09/04/22 09:40 Pulse Oximetry 95 09/04/22 14:32 Respiratory End-tidal CO2 37 09/04/22 13:30 Oxygen Delivery Method Room Air 09/04/22 14:32 Oxygen Flow Rate 0 09/04/22 13:30 Pain Level 1 09/04/22 14:32 Comment block completed by Rebecca Wolff CRNA @ [id number], vitals taken. pt denies ringing in ears pt denies metalic taste pt denies tingling around the mouth 09/04/22 09:40 Intake & Output 09/03/22 09/04/22 09/04/22 23:59 11:59 23:59 Intake Total 110 / 1490 1380 / 1490 Output Total 150 / 150 Balance 110 / 1340 1230 / 1340 Weight 210 lb 5.136 oz Intake: IV 110 / 1010 900 / 1010 Oral 480 / 480 Output: Estimated Blood Loss 150 / 150 Other: Emesis Description None PFSH All Active Problems Primary osteoarthritis of left knee (Chronic) Corticosteroid injection: 04/21/18 Synvisc injection: 10/09/17 History of left breast cancer (Chronic ~1992) 1992 s/p chemo, radiation, lumpectomy, tamoxifen. Recurrence in 2018 s/p total mastectomy Osteoporosis (Chronic) Completed 4 years of fosamax, declines further medications Hypothyroidism (Chronic) Hyperlipidemia (Chronic) Gastroesophageal reflux disease (Chronic) Chronic low back pain (Chronic) Right lumbar radiculopathy, L5-S1 isthmus spondylolisthesis Urge incontinence (Chronic) Obesity (Chronic) Sensorineural hearing loss (SNHL) (Chronic) Sigmoid diverticulosis (Chronic) Medical History Malignant neoplasm of left breast 1992 s/p chemo, radiation, lumpectomy, tamoxifen. 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 12/17 Surgical History H/O total mastectomy of left breast (06/27/18) S/P colonoscopy (06/19/13) S/P tonsillectomy and adenoidectomy Status post left breast lumpectomy (1992) Status post left knee replacement (09/25/18) Family History Mother , at 88 Hyperlipidemia Osteoarthritis Atrial fibrillation Heart disease Depression Father , at 77 Heart disease Hypertension Myocardial infarction Son No problems noted. Daughter No problems noted. Maternal Grandfather , at 65 Brain cancer Type 2 diabetes mellitus Maternal Grandmother , at 81 No problems noted. Paternal Grandfather , at 50 Throat cancer Paternal Grandmother , at 84 Heart disease Social History (Updated 10/26/21 @ 13:16 by Katia Hernandez) Smoking/Tobacco Use Status: Former Tobacco Use tobacco type: cigarettes Quit Date: 06/03/70 Tobacco: How many years used: 6 Smoking risk assessment performed?: Yes Alcohol Intake: current Alcohol Intake frequency: a few times a week Alcohol type: wine Drug use: Never Substance use type: does not use Details: alcohol: 2 nights ago 1 glass of wine Household members: none Housing: house Communication Needs: Hard of Hearing and Corrective Lenses Do you need help understanding health information?: Never Pets and animals: Yes Pets and animals: cat(s) and dog(s) Sexually active: No Do you think of yourself as: straight/heterosexual Current gender identity: female What is your relationship status?: How often do you talk on the phone with friends or family?: three or more times per week How often do you get together with friends or relatives?: once per week How often do you attend catholic or jain services?: 1-3 times per year Do you belong to any clubs or organized social groups?: yes Panel score (0-1 are the most socially isolated patients): 2 What type of physical activity do you participate in: weight lifting Duration: 30-45 minutes/day Frequency: 1-2 times per week Janette/Lutheran: None Seatbelt use: always Helmet use: No Drive intox or ride w/intox 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 History History 4 Para 2 Hx # Term Pregnancies Multiple births Hx # Pregnancies Ectopic pregnancies AB induced 2 Hx Number of Living Children 2 AB spontaneous Time Spent with Patient Time Spent with Patient: <45 minutes Time was spent: obtaining and/or reviewing separately otained hiistory and counseling the patient
--- NOTE | 2022-09-04 16:19 | PT.INIE ---
PT Notes Visit Reasons: Right knee DJD Inpatient Physical Therapy Evaluation Date: 09/04/2022 Referring Doctor: Carson Shelley MD PT Orders: PT CONSULT: Evaluate and treat Precautions: Fall precautions Patient Profile/Admitting Diagnosis: 77-year-old with osteoarthritis of the right knee status post right TKA earlier today PMHX: [facility] Medical History?(Updated 08/23/22 @ 14:06 by SHERIDAN Hoffman) Malignant neoplasm of left breast 1992 s/p chemo, radiation, lumpectomy, tamoxifen. Recurrence in 2018 s/p total mastectomySCC (squamous cell carcinoma) R lateral cheek 11/16 and R malar prominence 12/17 Surgical History? H/O total mastectomy of left breast (06/27/18) S/P colonoscopy (06/19/13) S/P tonsillectomy and adenoidectomy Status post left breast lumpectomy (1992) Status post left knee replacement (09/25/18) Social History/Home Situation: Lives in a single level home with 2 steps and railing entering the home. Retired Current Functional Limitations: Independent with all ADLs prior to surgery Equipment Owned/DME: Has a shower chair for her combo tub shower. No grab bars but has a flexible shower hose Subjective: No complaints of pain offered. She does note some weakness of her right lower extremity with weightbearing Objective: General Observation: Pleasant, cooperative and no abnormal pain behavior noted Mental Status: Alert and oriented x3 ROM: Has full functional range of motion of her extremities other than her right knee. Her active assistive right knee motion is -5 to 90 degrees Strength: Her strength is generally rated minus 5/5 throughout without pain on movement other than her right knee which is 3/5. She can form a supine straight leg raise with less than 10 degrees extension lag. Neuro: Sensations intact to light touch and she has full motor control Bed Mobility/Transfers: Independent with assuming the supine sitting to standing positions Gait: She ambulated approximately 75 feet with FWW and contact guarding with stable gait. She was able to ascend and descend 4 steps with a railing with proper technique and safely. Balance: Static Sitting: Stable Dynamic sitting: Stable Static Standing: Stable Dynamic Standing: Contact guarding Informed Consent/Education: Patient instructed in purpose of PT consult and plan of care. Assessment: Patient is a 77year old female referred to physical therapy services with the diagnosis of status post right TKA. Patient presents with clinical signs and symptoms consistent with diagnosis, as demonstrated by the following impairment level findings: Weakness of her right thigh musculature, but good range of motion of the right knee, with stable gait, although first irritated I recommend that she have her son provide standby supervision. Impairments are contributing to the following functional limitations: AMPAC score. Patient is assessed as a moderate 95739 complexity based on the following: History: See comorbidities and social history Examination: See above for functional limitations and impairments Presentation: Evolving Decision Making: Moderate complexity based on clinical findings Goals: Minimize onset of blood clot, increased dynamic stability of the right knee via the quadriceps mechanism, maintain right knee mobility Plan of Care/Treatment Plan: Today's session consisted of assessing the patient out of bed, gait training with an FW W along with stair climbing and issuing her written and illustrated home exercise program consisting of quad and gluteal sets and ankle pumping. Over the next day or 2 she can serve as a table or bed and dangle her right knee along with gentle flexion exercises. Also prolonged stretch into knee extension, along with supine straight leg raises etc. She is to follow-up appointment in approximately 2 weeks with [facility] physical therapy after her visit with Dr. Shelley. TREATMENT CODE/TIME: 9716 2/45 minutes Disclaimer: This note was created using [employer] voice recognition software. It was reviewed for major content. However, there may be multiple small discrepancies and errors due to the voice recognition aspects of the software.
--- NOTE | 2022-09-04 16:40 | W.PM.OP ---
Date of service: 09/04/22 Time of Service: 12:20 Operative Note Operative Note DATE OF PROCEDURE: 09/04/22 PRE-OP DIAGNOSIS: Right Knee Arthritis with Valgus Deformity POST-OP DIAGNOSIS: same PROCEDURE: RIGHT Total Knee Arthroplasty with Intraoperative Navigation SURGEON: Carson Shelley HEATER OPERATOR HELPER: Nano Moralez ANESTHESIA TYPE: Spinal Refer to Anesthesia Record ESTIMATED BLOOD LOSS: 150 PATHOLOGY: none sent COMPLICATIONS: Other (There was some notching of the anterior femur. The edge of this was smoothed and involved the cortex thickness.) Patient was transported to: PACU Patient's condition: stable Implants: 1. Depuy Attune Posterior Stabilized Femoral Component, Size 6 2. Depuy Attune Rotating Platform Tibial Component, Size 5 3. Depuy Attune 6x6 RP/PS Poly 4. Depuy Attune Patellar Component, Size 35 Indications: I have seen Neisha Seay in clinic for symptoms of knee arthritis, confirmed with radiographic findings. She has exhausted nonoperative methods and was having significant limitations in daily function and desired better function and less pain. I discussed the technical details of a knee replacement. I explained the risks of the procedure to include, but not limited to, bleeding, infection, pain, stiffness, fracture, damage to nerves and vessels, damage to muscles and tendons, loosening, need for repeat procedure, blood clot and cardiopulmonary demise. Despite these risks, Neisha Seay elected to proceed. Findings: There was significant signs of arthritis throughout the knee, mostly of the lateral compartment, with complete loss of cartilage and a valgus deformity. Procedure Description: Neisha Seay was greeted in the preoperative holding area where the correct side was identified and marked. The consent was reviewed with the patient and signed. The history and physical was updated. All questions were answered. Preoperative mediacations were administered: Acetaminophen 1000mg, Celebrex 400mg, and Gabapentin 300mg. An adductor canal block was then administered by the anesthesia team in the PACU. Neisha Seay was taken back to the operating room. A spinal anesthestic was then administered. The patient was placed into the supine position on the operating room table. A nonsterile tourniquet was placed high onto the leg but only used for cementing. Posts were placed for positioning during the procedure. All bony prominences were well padded. Prophylactic antibiotics in the form of Cefazolin were administered. 1g of Tranxemic Acid was given intravenously within 30 minutes of incision. The right leg was then prepped with Chloraprep and draped in a standard fashion with impervious stockinette and extremity drape with Iodine impregnated skin protection. A timeout to confirm correct identity, side and site, procedure, allergies, anesthesia, and medical concerns was performed. With the knee in some flexion, a midline incision was made overlying the knee. Full thickness skin flaps were raised once the extensor mechanism was encountered. These were raised medially and laterally. Any bleeding was controlled with electrocautery. Once the extensor mechanism was fully exposed, a medial parapatellar arthrotomy was performed in a flexed position. All bleeding from the arthrotomy and the geniculate arteries was coagulated. A medial subperiosteal peel was performed with electrocautery to the midcoronal plane. The fat pad was removed while keeping the patellar tendon protected. The anterior distal femur synovium was removed for later visualization. The ACL and PCL were resected and the anterior horn of the lateral meniscus was transected. The knee was then flexed with the patella everted. Large osteophytes from the tibia were removed. Large osteophytes from the femur were removed. A single starting pin was then placed 1cm anterior to the PCL insertion and the notch in the direction of the femoral head. The OrthoAlign device was applied over the pin. It was oriented to be in line with the epicondylar axis and the trochlear groove. It was then pinned into place. The navigation computer was then turned on and calibrated. The distal femur cut was set at 0 degrees varus/valgus and 3.5 degrees flexion. The distal femur cutting guide then was positioned for a 9mm cut. The distal femur was cut with an oscillating saw while protecting the soft tissues. The tibia was then addressed. The OrthoAlign device was placed over the tibial tubercle and medial tibia and secured into position. Once again, OrthoAlign was calibrated and then set for a 2 degree varus cut and 3 degrees of posterior slope. With this locked into position, the cut thickness stylus was used to assess cut thickness. The lateral side, most involved side, was set for a 4mm cut. This was then held in position and pinned into place with 2 additional pins and a cross pin for stability. The medial and lateral collateral ligaments were protected and the cut was performed. With this completed, it was assessed and noted to be of appropriate dimensions. The guide and OrthoAlign was removed. A spacer block was inserted and the knee was brought into extension. The 6mm spacer block provided full extension, without hyperextension and with stability of both the medial and lateral collateral ligaments was assessed. The pins from the femur and the tibia were then removed. The distal femur was then sized. The anterior stylus was placed onto the lateral ridge of the anterior femur. This indicated a size 6 femur. The balancing portion of the Ortholign device was then inserted in extension. This showed a balanced extension gap. This measurement was then saved and the knee was brought into 90 degrees of flexion were once again the balancing device was utilized. The difference between the extension and flexion gaps within adjusted on the jig and the pins were placed. The 4-in-1 cutting block, size 6, was then placed. An sha wing was used to confirm appropriate position of the anterior cut to avoid notching. This cutting guide was ensured to be flush on the cut surface and then pinned into place with headed pins. While protecting the soft tissues, quad tendon, and collateral ligaments, the anterior and posterior cuts were performed with a saw. Unfortunately, the anterior cut did have some notching. The bone was relatively soft and the edge of the blade stayed under the cortex. However, this was a aborted early to transect the cut and smooth the edges. The central two pins were removed and the posterior and anterior chamfers were cut next. The notch-cutting guide was placed. This was pinned to lateralize the femoral component as much as possible while keeping it flush on the cut surface. This was then pinned into position. A reciprocating saw was used to make the notch cut. A rasp smoothed the cut surfaces. A trial posterior stabilized femoral component was then inserted, impacted down to the cut surfaces, and the lug holes were drilled. A provisional trial tibial component was placed and the knee was brought through range of motion. There was noted to be excellent extension and flexion. There was no significant instability. The patella was tracking without thumbs. The tibial cut surface was fully exposed. The medial and lateral menisci were removed. The tibia was then sized as a 5. The tibia had been previously marked during trialing to correspond to the center of the tibial component to help with rotation. The trial was aligned to this aly, approximately rotated to the medial 1/3rd of the tibial tubercle. The trial was pinned into place. The tibia was prepared with a reamer and a keel punch. The knee was then brought into extension and the patella was measured as 25mm. Using the patellar clamp and cut guide, this was resected to a flat surface with at least 13mm of thickness remaining. The size 35 patella fit the best. This was oriented and then clamped into position. The lugs were drilled. The trial components were removed. The final components, except for the polyethylene were opened on the back table. The periosteal and capsular tissues, especially posteriorly, around the knee were then systematically injected with a periarticular cocktail consisting of 246mg of Ropivacaine, 0.5mg of Epinephrine, 0.08mg of Clonidine, and 30mg of Ketorolac, diluted to 100cc. The tourniquet was then inflated to 275mmHg. The knee was thoroughly irrigated with a pulse lavage and dried. On the back table, with the implants opened, the cement was mixed. 2 batches of medium viscosity cement were prepared with vacuum assistance. After the cement was ready a small amount was placed on to the back side of the tibial component at the keel. A small amount was placed onto the posterior flange of the femur. Cement was manual pressurized and impregnated into the cut surface of the tibia. The tibial component was then inserted into the cut surface and impacted into position. Excess cement was removed and the component was reimpacted. Again, excess cement was removed and our attention was then turned to the femur. The femoral cut surface was once again dried and cement was manually impacted into the cut surface. The femoral component was lined with the lug holes and impacted. Excess cement was removed. It was ensured to be down against the cut surface. The trial polyethylene was then inserted and the leg was brought out into full extension for the duration of the cement curing process, approximately 18min. Cement was lastly manually impacted into the cut surface of the patella and the patellar button was clamped into position and held. During this process attention was turned to the gutters of the knee and for all interfaces for any excess cement. The knee was thoroughly irrigated with Irrisept chlorhexadine solution. It was allowed to sit in the wound for 3 minutes before being irrigated out with saline. After the cement had finally cured, approximately 18min, the clamp was removed from the patella and the knee was taken through range of motion. A size 6mm polyethylene component provided the best range of motion and stability with less than 2mm gapping with medial and lateral stress and full extension without significant hyperextension. The patella was tracking with a no-thumbs technique. The trial poly was removed and once again the knee was checked for any loose, excess, or errant cement. The poly component was then inserted and impacted into position after cleaning and drying the tibial tray. The capsule was then reapproximated with a No. 1 Vicryl at multiple locations. The capsule was finally closed with a No. 2 Stratafix, barbed suture. The tourniquet was then released and the arthrotomy appeared watertight without significant bleeding. The second dosing of 1g TXA was started. Deep tissues were then reapproximated with 0 Vicryl and 2-0 Monocryl. The skin was closed with a running 3-0 Monocryl in a subcuticular fashion. This was reinforced with skin glue. A Mepilex silver dressing was applied along with a [id number] RODRIGUEZ wrap. A CryoCuff was applied. Neisha Seay was transferred to the hospital bed without difficulty an suffering no apparent complication. She has a good prognosis. Physical therapy will start today and without restrictions, weight-bearing as tolerated. Aspirin 81mg BID will be used for DVT prophylaxis.
== END 2022-09-04 16:48 | disposition home or self-care (01) ==
PROVIDERS: PCP Nurse Practitioner Family; Visit Provider Student in an Organized Health Care Education/Training Program
PROC: (CPT 27447; principal; 2022-09-04 11:30)
DX: M17.11 Unilateral primary osteoarthritis, right knee (principal); M21.061 Valgus deformity, not elsewhere classified, right knee; E66.9 Obesity, unspecified; Z68.39 Body mass index [BMI] 39.0-39.9, adult
CPT/HCPCS: 20985; 27447; C1776; 76942; 97162; J0690; J1100; J2250; J2405; J3010

== ENCOUNTER 2022-09-17 13:34 | Outpatient (CLI) | payer MEDICARE, OTHER, SELFPAY ==
--- NOTE | 2022-09-17 13:15 | DI.RAD_ITS ---
Exam(s) XR STANDING ALIGNMENT EXAM: XR STANDING ALIGNMENT CLINICAL HISTORY: 1ST POST OP R TKA. TECHNIQUE: 2D digital imaging was performed. COMPARISON: CR XR STANDING ALIGNMENT from 08/23/2022 FINDINGS: There has been interval placement of a right knee prosthesis. The bilateral knee prostheses appear t o be satisfactory. Ankles unremarkable. Hips unremarkable. Bone density normal. No osseous lesion s. IMPRESSION: As above. DATA REPOSITORY: RADIATION DOSE DELIVERED:
--- NOTE | 2022-09-17 13:15 | DI.RAD_ITS ---
Exam(s) XR KNEE RT 1V EXAM: XR KNEE RT 1V CLINICAL HISTORY: 1ST POST OP R TKA. TECHNIQUE: 2D digital imaging was performed. COMPARISON: CR XR KNEE RT 1V from 08/23/2022 FINDINGS: Single lateral view Components of the recently placed prosthesis appears satisfactory on the lateral view. No fracture n or loosening evident. IMPRESSION: Satisfactory appearance. DATA REPOSITORY: RADIATION DOSE DELIVERED:
== END 2022-09-17 13:35 | disposition home or self-care (01) ==
LOC: DIORS 13:34
PROVIDERS: PCP Nurse Practitioner Family; Referring Provider Nurse Practitioner Family; Visit Provider Student in an Organized Health Care Education/Training Program
DX: Z96.651 Presence of right artificial knee joint (principal); Z47.1 Aftercare following joint replacement surgery
CPT/HCPCS: 73560; 77073

== ENCOUNTER → 2022-10-15 14:37 | Outpatient (BNVA) | payer MEDICARE, OTHER, SELFPAY | PROVIDERS: PCP Nurse Practitioner Family; Referring Provider Nurse Practitioner Family | DX: Z47.1 Aftercare following joint replacement surgery (principal); Z96.651 Presence of right artificial knee joint ==

== ENCOUNTER 2022-11-02 02:39 | Outpatient (CLI) | payer MEDICARE, OTHER, SELFPAY ==
[2022-11-02 12:38] LABS: TSH (W/Ref FT4) 0.69 uIU/mL (0.36-3.74)
[2022-11-02 13:28] LABS: Vitamin D 25 Total 39.1 ng/mL (30-100)
== END 2022-11-02 02:40 | disposition home or self-care (01) ==
PROVIDERS: PCP Nurse Practitioner Family; Visit Provider Nurse Practitioner Family
DX: E03.9 Hypothyroidism, unspecified (principal); R25.2 Cramp and spasm; M81.0 Age-related osteoporosis without current pathological fracture
CPT/HCPCS: 36415; 82306; 83735; 84443

== ENCOUNTER → 2022-11-05 14:23 | Outpatient (BNVA) | payer MEDICARE, OTHER, SELFPAY | PROVIDERS: PCP Nurse Practitioner Family; Referring Provider Nurse Practitioner Family; Visit Provider Student in an Organized Health Care Education/Training Program | DX: Z47.1 Aftercare following joint replacement surgery (principal); Z96.651 Presence of right artificial knee joint ==

== ENCOUNTER → 2022-11-26 14:36 | Outpatient (BNVA) | payer MEDICARE, OTHER, SELFPAY | PROVIDERS: PCP Nurse Practitioner Family; Referring Provider Nurse Practitioner Family; Visit Provider Student in an Organized Health Care Education/Training Program | DX: Z47.1 Aftercare following joint replacement surgery (principal); Z96.651 Presence of right artificial knee joint ==

== ENCOUNTER → 2023-07-25 00:26 | Outpatient (CLI) | payer MEDICARE, OTHER, SELFPAY ==
--- NOTE | 2023-07-25 11:05 | DI.MAMMO_ITS ---
Exam(s) MG MAMMO SCREENING 60 MIN DUR EXAM: MG MAMMO SCREENING 60 MIN DUR CLINICAL HISTORY: breast cancer screening, personal h/o lt breast ca,z85.3,z12.31 TECHNIQUE: Bilateral full field digital CC and MLO mammographic images were obtained with 3D tomosyn thesis and utilizing computer aided detection (CAD). COMPARISON: Available for comparison. FINDINGS: The patient is status post left mastectomy. Masses/Architectural Distortion: None seen. Microcalcifications: No suspicious pleomorphic-type are seen. Skin Thickening/Nipple Retraction: None. IMPRESSION: 1. No significant interval change with no specific features of malignancy noted. 2. Unless there is more urgent need, screening mammography is recommended, as per [employer] guidelines. 3. Findings were discussed with the patient on the date of the examination. BI-RADS Category 1 - Negative Breast Density - Category B - Scattered areas of fibroglandular density Breast density category C or D implies that the patient has dense breast tissue. Dense breast tissue is very common and is not abnormal but dense breast tissue can make it harder to find cancer on a ma mmogram. Also, dense breast tissue may increase their breast cancer risk. This information about the result of the mammogram report was provided to the patient to raise their awareness. Use this report when you speak with the patient about their risks for breast cancer, which includes their family hist ory. At that time, you may recommend for more screening tests (Ultrasound or MRI) as they might be us eful based on their risk. A negative radiographic report should not delay biopsy if a dominant or clinically suspicious mass is present. Up to ten percent of cancers are not identified on mammography. A negative report may reinforce clinical impression. Adenosis and dense breasts may obscure an underlying neoplasm. False positive reports average 6 to 10%. Patient will receive a letter notifying them of these results.
== END ==
PROVIDERS: PCP Nurse Practitioner Family; Visit Provider Nurse Practitioner Family
DX: Z12.31 Encounter for screening mammogram for malignant neoplasm of breast (principal); Z85.3 Personal history of malignant neoplasm of breast
CPT/HCPCS: 77063; 77067

== ENCOUNTER 2023-09-19 15:28 | Outpatient (CLI) | payer MEDICARE, OTHER, SELFPAY ==
--- NOTE | 2023-09-19 11:30 | DI.RAD_ITS ---
Exam(s) XR KNEE RT 2V AP,LAT EXAM: XR KNEE RT 2V AP,LAT CLINICAL HISTORY: ANNUAL F/U R TKA. TECHNIQUE: 2D digital imaging was performed. Two images were obtained. AP and lateral views were ob tained. COMPARISON: CR XR KNEE RT 3V AP,LAT,SALOME from 10/19/2021 CR XR STANDING ALIGNMENT from 09/17/2022 CR XR KNEE RT 1V from 09/17/2022 FINDINGS: BONES: There are stable post operative changes of a right total knee replacement present. No fractur e or dislocation. JOINTS: The orthopedic hardware is in good position. No evidence of hardware loosening. SOFT TISSUE: Normal. IMPRESSION: Stable right total knee replacement. DATA REPOSITORY: RADIATION DOSE DELIVERED:
== END 2023-09-19 15:29 | disposition home or self-care (01) ==
LOC: DIORS 15:28
PROVIDERS: PCP Nurse Practitioner Family; Referring Provider Nurse Practitioner Family; Visit Provider Student in an Organized Health Care Education/Training Program
DX: Z47.1 Aftercare following joint replacement surgery (principal); Z96.651 Presence of right artificial knee joint
CPT/HCPCS: 99213; 73560

== ENCOUNTER 2023-09-24 15:16 | Outpatient (CLI) | payer MEDICARE, OTHER, SELFPAY ==
--- NOTE | 2023-09-24 14:45 | DI.RAD_ITS ---
Exam(s) XR SHOULDER LT COMPLETE 2+V EXAM: XR SHOULDER LT COMPLETE 2+V CLINICAL HISTORY: LEFT SHOULDER PAIN. TECHNIQUE: 2D digital imaging was performed of the left shoulder. Two images were obtained. Grashe y and axillary views were obtained. COMPARISON: No exams were available for comparison FINDINGS: BONES: No acute fracture is present. No bony destructive lesion is seen. JOINTS: No dislocation present. There is marked narrowing of the glenohumeral joint with [id number] . Osteophytes are seen at the inferior aspects of both the glenoid and the humeral head. There is a bony round density inferior to the humeral head which may represent a loose body. The acromioclavic ular joint is within normal limits. SOFT TISSUE: The visualized lungs are clear. IMPRESSION: Marked arthrosis of the glenohumeral joint. Loose body. DATA REPOSITORY: RADIATION DOSE DELIVERED:
--- NOTE | 2023-09-24 14:45 | DI.RAD_ITS ---
Exam(s) XR SHOULDER RT COMPLETE 2+V EXAM: XR SHOULDER RT COMPLETE 2+V CLINICAL HISTORY: RIGHT SHOULDER PAIN. TECHNIQUE: 2D digital imaging was performed. COMPARISON: CR XR SHOULDER LT COMPLETE 2+V from 09/24/2023 FINDINGS: 3 views No evidence of fracture or dislocation. There is advanced degenerative narrowing of the glenohumeral joint space and there is a murphy-type osteophyte on the inferior articular surface of the humeral he ad. Subacromial space is family preserved in height and there is no upward subluxation of the jemima l head in the osseous glenoid. There are multiple calcific bodies around the humeral head-neck. Three of these appeared to be with in the region of the biceps tendon sheath within the intertubercular groove of the proximal humerus. The other appears to be just medial to the humeral head neck. This may be within a capacious inferi or recess at this level. The average size of these loose bodies measures approximately 9 x 7 mm. 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 Some of these appear to be within t he biceps tendon sheath within the intertubercular groove. DATA REPOSITORY: RADIATION DOSE DELIVERED:
== END 2023-09-24 15:17 | disposition home or self-care (01) ==
LOC: DIORS 15:16
PROVIDERS: PCP Nurse Practitioner Family; Referring Provider Nurse Practitioner Family; Visit Provider Student in an Organized Health Care Education/Training Program
DX: M19.011 Primary osteoarthritis, right shoulder; M19.012 Primary osteoarthritis, left shoulder
CPT/HCPCS: 99213; 73030

== ENCOUNTER 2023-11-04 04:46 | Outpatient (CLI) | payer MEDICARE, OTHER, SELFPAY ==
[2023-11-04 12:43] LABS: ESR 15 mm/hr (0-30)
[2023-11-04 13:08] LABS: Hemoglobin A1C 5.7 % (<5.7)
[2023-11-04 14:01] LABS: BUN 23 mg/dL (7-18); CO2 28.8 mmol/L (21.0-32.0); CREATININE 0.9 mg/dL (0.55-1.02); Calcium 9.4 mg/dL (8.5-10.1); Calculated LDL 103 mg/dL (<100); Chloride 106 mmol/L (98-107); Cholesterol 217 mg/dL (<200); Estimated GFR 66.26 (mL/min/1.73m2); Glucose 101 mg/dL (74-106); HDL Cholesterol 74 mg/dL (40-60); Potassium 3.8 mmol/L (3.5-5.1); Sodium 142 mmol/L (136-145); Triglyceride 204 mg/dL (<150)
[2023-11-04 14:02] LABS: Anion Gap 7.2 mmol/L (3-11); TSH (W/Ref FT4) 0.35 uIU/mL (0.36-3.74)
[2023-11-04 14:19] LABS: C-Reactive Protein < 0.50 mg/dL (<or=0.5); FREE T4 1.44 ng/dL (0.76-1.46)
[2023-11-04 22:10] LABS: Rheumatoid Factor 16.4 IU/mL (<12.0)
[2023-11-04 23:55] LABS: HIV-1/2 Ag & Ab Screen Negative (Negative)
[2023-11-05 00:23] LABS: HBs Antibody, Quant <3.1 mIU/mL (See Note); Hep B Surface Ab Negative (See Note); Hepatitis B Core Antibody Negative (Negative); Hepatitis B Surface Antigen Negative (Negative)
== END 2023-11-04 04:47 | disposition home or self-care (01) ==
LOC: LBO 04:46
PROVIDERS: PCP Nurse Practitioner Family; Visit Provider Nurse Practitioner Family
DX: E03.9 Hypothyroidism, unspecified (principal); E78.5 Hyperlipidemia, unspecified; Z00.00 Encounter for general adult medical examination without abnormal findings; R73.01 Impaired fasting glucose; Z11.59 Encounter for screening for other viral diseases
CPT/HCPCS: 36415; 80048; 80061; 85652; 86704; 86706; 87340; 87389; 83036; 84439; 84443; 86140; 86431

== ENCOUNTER 2024-01-16 02:33 | Outpatient (CLI) | payer MEDICARE, OTHER, SELFPAY ==
[2024-01-16] MEDS: Normal Saline - Diluent 50 ML VIAL IJ (15:26)
[2024-01-16] MEDS: Omnipaque 300 MG/ML 10 ML BTL 5 ML IJ (15:27)
[2024-01-16] MEDS: Bupivacaine 0.5% Pres-Free 10 ML VIAL IJ (15:28)
[2024-01-16] MEDS: methylPREDNISolone ACETATE 80 MG/ML VIAL IM (15:28)
--- NOTE | 2024-01-16 15:35 | DI.RAD_ITS ---
Exam(s) RF JOINT INJ. FLUORO GUID RAD EXAM: RF JOINT INJ. FLUORO GUID RAD CLINICAL HISTORY: L SHOULDER PAIN,fluoro guided injection, arthritis, m19.012. The Patient has had persistent left shoulder pain. Noninvasive measures have been tried. To serve as both diagnostic an d therapeutic, an injection under fluoroscopy was recommended. The risks of the procedure were discu ssed with their Orthopedic provider and the patient elected to proceed. TECHNIQUE: 2D and realtime digital imaging was performed. CONTRAST MATERIAL: Water soluble contrast was utilized. COMPARISON: No exams were available for comparison FINDINGS: The Patient was greeted in the fluoroscopy room. The correct side was identified and the consent was reviewed with the patient and was signed. The patient was properly positioned on the fluoroscopy ta ble. The left shoulderwas then prepped with Chloraprep and draped. The left shoulder injection star ting point was identified by the bony landmarks and fluoroscopy. The skin and soft tissue in the tra ct of the injection was anesthetized with 1% Lidocaine. A spinal needle was then inserted into the l eft shoulder joint at the level of the glenohumeral joint under fluoroscopic guidance. A small amoun t of Omnipaque solution was injected to confirm intraarticular placement. Once confirmed, the left s houlder was injected with 5cc of a solution containing 0.5% Bupivaine and 80 mg of Depo-Medrol. A ba ndaid was placed on the injection site. The patient tolerated the procedure well and left the depart ment in good condition. IMPRESSION: Successful left shoulder injection. RADIATION DOSE DELIVERED: Ka,r=2.04 mGy
== END 2024-01-16 02:53 ==
LOC: DI 02:33
PROVIDERS: PCP Nurse Practitioner Family; Visit Provider Student in an Organized Health Care Education/Training Program
DX: M19.012 Primary osteoarthritis, left shoulder (principal)
CPT/HCPCS: 20610; 77002; J0665; J1010

== ENCOUNTER 2024-01-16 04:53 | Outpatient (CLI) | payer MEDICARE, OTHER, SELFPAY | END 2024-01-16 04:54 | disposition home or self-care (01) | PROVIDERS: PCP Nurse Practitioner Family; Visit Provider Nurse Practitioner Family | DX: E03.9 Hypothyroidism, unspecified (principal) | CPT/HCPCS: 20610; 36415; 77002; 84443; J0665; J1010 ==

== ENCOUNTER 2024-02-06 02:41 | Outpatient (CLI) | payer MEDICARE, OTHER, SELFPAY ==
--- NOTE | 2024-02-06 07:30 | DI.RAD_ITS ---
Exam(s) RF JOINT INJ. FLUORO GUID RAD EXAM: RF JOINT INJ. FLUORO GUID RAD CLINICAL HISTORY: R SHOULDER PAIN,fluoro guided injection,arthritis,m19.011. The Patient has had pe rsistent right shoulder pain. Noninvasive measures have been tried. To serve as both diagnostic and therapeutic, an injection under fluoroscopy was recommended. The risks of the procedure were discus sed with their Orthopedic provider and the patient elected to proceed. TECHNIQUE: 2D and realtime digital imaging was performed. CONTRAST MATERIAL: Water soluble contrast was utilized. COMPARISON: No exams were available for comparison FINDINGS: The Patient was greeted in the fluoroscopy room. The correct side was identified and the consent was reviewed with the patient and was signed. The patient was properly positioned on the fluoroscopy ta ble. The right shoulderwas then prepped with Chloraprep and draped. The right shoulder injection st arting point was identified by the bony landmarks and fluoroscopy. The skin and soft tissue in the t ract of the injection was anesthetized with 1% Lidocaine. A spinal needle was then inserted into the right shoulder joint at the level of the glenohumeral joint under fluoroscopic guidance. A small am ount of Omnipaque solution was injected to confirm intraarticular placement. Once confirmed, the rig ht shoulder was injected with 5cc of a solution containing 0.5% Bupivaine and 80 mg of Depo-Medrol. A bandaid was placed on the injection site. The patient tolerated the procedure well and left the de partment in good condition. IMPRESSION: Successful right shoulder injection. RADIATION DOSE DELIVERED: Ka,r=4.34 mGy
[2024-02-06] MEDS: Bupivacaine 0.5% Pres-Free 10 ML VIAL IJ (13:53)
[2024-02-06] MEDS: methylPREDNISolone ACETATE 80 MG/ML VIAL IM (13:54)
[2024-02-06] MEDS: Omnipaque 300 MG/ML 10 ML BTL IJ (13:54)
[2024-02-06] MEDS: Normal Saline - Diluent 50 ML VIAL IJ (13:55)
== END 2024-02-06 03:01 ==
LOC: DI 02:41
PROVIDERS: PCP Nurse Practitioner Family; Visit Provider Student in an Organized Health Care Education/Training Program
DX: M19.011 Primary osteoarthritis, right shoulder (principal); M25.511 Pain in right shoulder
CPT/HCPCS: 20610; 77002; J0665; J1010

== ENCOUNTER → 2024-03-18 12:53 | Outpatient (BNVA) | payer MEDICARE, OTHER, SELFPAY | PROVIDERS: PCP Nurse Practitioner Family; Referring Provider Nurse Practitioner Family; Visit Provider Student in an Organized Health Care Education/Training Program | DX: M19.011 Primary osteoarthritis, right shoulder (principal); M19.012 Primary osteoarthritis, left shoulder | CPT/HCPCS: 99214 ==

== ENCOUNTER 2024-04-09 02:49 | Outpatient (CLI) | payer MEDICARE, OTHER, SELFPAY ==
[2024-04-09] MEDS: methylPREDNISolone ACETATE 80 MG/ML VIAL IM (14:45)
[2024-04-09] MEDS: Bupivacaine 0.5% Pres-Free 10 ML VIAL 5 ML IJ (14:47)
[2024-04-09] MEDS: Omnipaque 300 MG/ML 10 ML BTL IJ (14:48)
--- NOTE | 2024-04-09 16:31 | DI.RAD_ITS ---
Exam(s) RF JOINT INJ. FLUORO GUID RAD EXAM: RF JOINT INJ. FLUORO GUID RAD CLINICAL HISTORY: L SHOULDER PAIN,fluoro guided injection, arthritis lt glenohumeral joint. The Pat ient has had persistent left shoulder pain. Noninvasive measures have been tried. To serve as both diagnostic and therapeutic, an injection under fluoroscopy was recommended. The risks of the procedu re were discussed with their Orthopedic provider and the patient elected to proceed. TECHNIQUE: 2D and realtime digital imaging was performed. CONTRAST MATERIAL: Water soluble contrast was utilized. COMPARISON: No exams were available for comparison FINDINGS: The Patient was greeted in the fluoroscopy room. The correct side was identified and the consent was reviewed with the patient and was signed. The patient was properly positioned on the fluoroscopy ta ble. The left shoulderwas then prepped with Chloraprep and draped. The left shoulder injection star ting point was identified by the bony landmarks and fluoroscopy. The skin and soft tissue in the tra ct of the injection was anesthetized with 1% Lidocaine. A spinal needle was then inserted into the l eft shoulder joint at the level of the left glenohumeral joint under fluoroscopic guidance. A small amount of Omnipaque solution was injected to confirm intraarticular placement. Once confirmed, the l eft shoulder was injected with 5cc of a solution containing 0.5% Bupivaine and 80 mg of Depo-Medrol. A bandaid was placed on the injection site. The patient tolerated the procedure well and left the d epartment in good condition. IMPRESSION: Successful left shoulder injection. RADIATION DOSE DELIVERED: Ka,r=2.26 mGy
== END 2024-04-09 03:09 ==
LOC: DI 02:50
PROVIDERS: PCP Nurse Practitioner Family; Visit Provider Student in an Organized Health Care Education/Training Program
DX: M19.011 Primary osteoarthritis, right shoulder (principal)
CPT/HCPCS: 20610; 77002; J0665; J1010

== ENCOUNTER 2024-05-21 01:23 | Outpatient (CLI) | payer MEDICARE, OTHER, SELFPAY ==
--- NOTE | 2024-05-21 13:59 | DI.RAD_ITS ---
Exam(s) RF JOINT INJ. FLUORO GUID RAD EXAM: RF JOINT INJ. FLUORO GUID RAD CLINICAL HISTORY: R SHOULDER PAIN,fluoro guided injection,arthritis rt glenohumeral joint. The Susy ent has had persistent right shoulder pain. Noninvasive measures have been tried. To serve as both diagnostic and therapeutic, an injection under fluoroscopy was recommended. The risks of the procedu re were discussed with their Orthopedic provider and the patient elected to proceed. TECHNIQUE: 2D and realtime digital imaging was performed. CONTRAST MATERIAL: Water soluble contrast was utilized. COMPARISON: No exams were available for comparison FINDINGS: The Patient was greeted in the fluoroscopy room. The correct side was identified and the consent was reviewed with the patient and was signed. The patient was properly positioned on the fluoroscopy ta ble. The right shoulderwas then prepped and draped. The right shoulder injection starting point was identified by the bony landmarks and fluoroscopy. The skin and soft tissue in the tract of the inje ction was anesthetized with 1% Bupivacaine. A spinal needle was then inserted into the right shoulde r joint at the level of the glenohumeral joint under fluoroscopic guidance. A small amount of Omnipa que solution was injected to confirm intraarticular placement. Once confirmed, the right shoulder wa s injected with 5cc of a solution containing 0.5% Bupivacaiine and 40 mg of Depo-Medrol. A bandaid w as placed on the injection site. The patient tolerated the procedure well and left the department in good condition. IMPRESSION: Successful right shoulder injection. RADIATION DOSE DELIVERED: Ka,r=3.1 mGy
[2024-05-21] MEDS: methylPREDNISolone ACETATE 40 MG/ML VIAL IJ (14:32)
[2024-05-21] MEDS: Omnipaque 300 MG/ML 10 ML BTL 5 ML IJ (14:34)
== END 2024-05-21 01:43 ==
LOC: DI 01:23
PROVIDERS: PCP Nurse Practitioner Family; Visit Provider Student in an Organized Health Care Education/Training Program
DX: M19.012 Primary osteoarthritis, left shoulder (principal)
CPT/HCPCS: 20610; 77002; J1010

== ENCOUNTER 2024-06-12 06:14 | Day surgery (SDC) | payer MEDICARE, OTHER, SELFPAY ==
--- NOTE | 2024-06-11 21:08 | W.COLOREPORT ---
Date of service: 06/12/24 Time of Service: 08:24 Colonoscopy Report Date of procedure: 06/12/24 Pre-op diagnosis general: Second-degree family member with colorectal cancer Post-op diagnosis procedure note: other Surgeon: Nano France Anesthesia Type: General:No Airway Estimated blood loss (mL): 1 Pathology: other Complications: None Disposition: same day Prep: Miralax/Dulcolax Retraction Time: 7 Procedure Description: After informed consent was obtained, explaining risks of the procedure, including but not limits to: bleeding, infections, complications of anesthesia, perforations (which may require antibiotics and /or surgery and stay in the hospital), and abdominal pain/cramping. The patient was taken to the procedure room and placed in a left decubitous position. Monitors were applied and a time out was done. The patients name, date of , procedure, allergies to medications and metal in their body was reviewed. The patient was then sedated. Once sedated and comfortable a rectal exam was done. External exam shows a few minute hemorrhoids internal exam revealed a normal sphincter tone and no palpable masses. The previously lubricated Olympus scope was then introduced (see RN notes for scope number) and retrofelexed. No internal hemorrhoids were identified. The scope was then advanced to the cecum without difficulty. The TI and appendiceal orifice were identified. The scope was then slowly retracted over 7 minutes back into the rectum. Polyps: A flat, .5cm polyp was found at 40 cm. This was removed with a cold biting forceps. All of the specimen was retrieved. This will be sent to pathology. There is no bleeding noted from the polypectomy site. Diverticula: pt had a moderate amount of small mouthed diverticula in the sigmoid colon. There were no signs of active bleeding or infection. The mucosa is pink and healthy w/ a normal vascular pattern. The scope was removed, and the patient was woken up and taken back to Same day surgery in stable condition. The patient tolerated the procedure well and there were no immediate complications. Follow up: The patient does not require any further screening colonoscopies, unless they develop changes in bowel habits or other new gastrointestinal complaints. [place] Bowel Prep [place] Bowel Prep Right Colon: 3 Left Colon: 3 Transverse Colon: 3 Total Score: 9
--- NOTE | 2024-06-11 21:09 | PDOC.DSDIS_ITS ---
Date of service: 06/12/24 Discharge Plan Disposition Patient Disposition: Home Condition: Good Discharge Details Reason For Visit: Colon cancer screening Attending Provider: Nano France Primary Care Provider: Argelia Carpenter Home Meds and New Rx's Prescriptions: Continued magnesium 250 mg tablet 300 mg PO .every other day aspirin 81 mg tablet,chewable 81 mg PO DAILY TERRENCE-e 200 MG tablet 200 mg PO DAILY multivitamin [Multi-Day] 1 EACH tablet 1 ea PO DAILY cholecalciferol (vitamin D3) [Vitamin D3] 1,000 UNIT capsule 1,000 unit PO DAILY Patient Comments: cyanocobalamin-cobamamide 1 EACH tablet, sublingual 1 ea Sublingual DAILY rosuvastatin [Crestor] 20 mg tablet 20 mg PO HS Qty: 90 3RF omeprazole 20 mg capsule,delayed release(DR/EC) 20 mg PO DAILY Qty: 90 3RF celecoxib [Celebrex] 100 mg capsule 100 mg PO BID PRN (Reason: pain) Qty: 180 3RF levothyroxine 125 mcg tablet 125 mcg PO DAILY Qty: 90 3RF acetaminophen 500 mg capsule 500 mg PO BID PRN fish,bora,flax oils-om3,6,9no1 [[place] 3-6-9 Complex] 400-400-400 mg Capsule 1 cap PO DAILY coenzyme Q10 [Co Q-10] 50 mg Capsule 50 mg PO DAILY Discontinued bisacodyl [Dulcolax (bisacodyl)] 5 mg tablet,delayed release (DR/EC) 5 mg PO ONCE Qty: 4 0RF Rx Instructions: Take per colonoscopy instructions provided by ordering providers office polyethylene glycol 3350 17 gram/dose powder 17 g PO ONCE Qty: 238 0RF Rx Instructions: Take per colonoscopy instructions provided by ordering providers office Discharge Instructions Additional Instructions: [facility] Colonoscopy Post- Op Instructions Instructions for Everyone who is given Anesthesia: For your safety, please do the following for the next twenty-four (24) hours: *Do Not operate a motor vehicle (car, truck, motorcycle, etc.) *Do Not drink alcoholic beverages or use any recreational drugs for the first 24 hours or while taking pain medications. The medications in your body may have a reaction that can be dangerous. *Do Not make any important decisions or sign any important papers. Findings: Few diverticula. Make sure you are moving your bowels on a regular basis and not straining. If you find you are having problems with constipation/straining, then is recommended you start a fiber product daily such as Metamucil X 1 small colon polyp Follow up: My office will send you a letter in 3 to 4 weeks time with the res ults of the polyp. This was very small and not concerning. No further routine screening colonoscopies are recommended at this time. Of course, you should continue to have a yearly physical exam including a rectal exam. If you should ever notice any pain or difficulty having a bowel movement, blood in the stool, unexplained weight loss, or change in your bowel habits, please contact your health provider 1. No lifting over 20 pounds or strenuous activity for the first 24 hours after your procedure. After 24 hours there are no restrictions on your activity but you may feel fatigued for a few days. 2. After you arrive home you may have a light meal and return to your normal diet as you can tolerate it without feeling sick to your stomach. 3. You may have a bloated, gaseous feeling in your belly (abdomen) after a colonoscopy. Passing gas and belching will help. Walking or lying down on your left side with your knees flexed may relieve the discomfort. Call the office at [phone] (Office) or [phone] (Hospital) right away if you notice any of the following: a.Vomiting of blood or ?coffee ground stools?. b.Rectal bleeding 1Tbsp, blood clots or continuous bleeding. c.Severe belly (abdominal) pain. d.A hard distended belly (abdomen) and an inability to pass gas. 4. Please don?t expect to have a normal BM (bowel movement) for 2-3 days after your procedure. 5. If there are questions regarding the findings of your procedure, please contact your doctor 6. If you are unable to contact your doctor with a problem, contact the hospital at [phone]. 7. Continue all your regular medications unless directed otherwise. I understand the above instructions and have no questions. Signature of Patient or Adult Escort Name of Responsible Adult Escort Signature of Nurse Date/Time Stand Alone Forms: Anesthesia Discharge Inst., Kath Cain (DSU) Activity:: See above Diet:: See above Discharge Orders Discharge Orders: Discharge Order (Routine); Ordered 06/11/24 Ordered By: Nano France DS: Diagnosis Discharge Diagnosis (1) Gastroesophageal reflux disease: Status: Chronic (2) Sigmoid diverticulosis: Status: Chronic (3) Urge incontinence: Status: Chronic (4) Malignant neoplasm of left breast: (5) Hypothyroidism: Status: Chronic (6) History of left breast cancer: Status: Chronic (7) Family history of malignant neoplasm of colon in relative diagnosed when older than 50 years of age: Status: Acute Asessment and Plan: The patient is seen and examined after their colonoscopy.? The patient has been able to pass gas.? They are not having abdominal pain.? They have been able to tolerate liquids and a snack.? They do not have any nausea or vomiting.? They are not having any chest pain or shortness of breath.??? They are not having any rectal bleeding. Their vital signs have been stable-see nursing notes. We discussed findings during their colonoscopy, and any biopsies that were done/polyps that were removed. The patient will be sent a letter with any biopsy results, and when to repeat the colonoscopy.-see discharge instructions. Patient was given explicit instructions to follow-up regarding colonoscopy-refer to discharge instructions.? We reviewed resumption of medications. Patient verbalized understanding and discharged in stable and satisfactory condition- See nursing notes. (8) Hx of adenomatous colonic polyps: Status: Acute
[2024-06-12 06:23] VITALS: BP 151/79; PULSE 91; RESP 20; TEMP 36.6; O2SAT 96
[2024-06-12] MEDS: Lactated Ringers 1,000 ML 80 ML IV (06:52)
[2024-06-12 07:31] VITALS: BMI 37.6
--- NOTE | 2024-06-12 07:31 | W.ANESPRE ---
General Info Date of Service Date Performed: 06/12/24 Height: 5 ft 2 in Weight: 93.3 kg Body Mass Index (BMI): 37.6 Surgical Procedure: Operation Date: 06/12/24 07:35 Proposed Procedure Side Surgeon eder France, DO Meds Allergies and Home Medications Allergies Allergy/AdvReac Type Severity Reaction Status Date / Time coconut oil AdvReac Unknown hives Verified 06/12/24 06:19 cyclobenzaprine AdvReac Unknown Psychosis Verified 06/12/24 06:19 lanolin AdvReac Unknown hives Verified 06/12/24 06:19 naproxen AdvReac Unknown hives Verified 06/12/24 06:19 paraben AdvReac Unknown hives Verified 06/12/24 06:19 Home Medication ?Medication ?Instructions ?Recorded s-adenosylmethionine 200 mg tablet 200 mg PO DAILY 07/01/15 (TERRENCE-e) cholecalciferol (vitamin D3) 25 1,000 unit PO DAILY 07/04/15 mcg (1,000 unit) capsule (Vitamin D3) multivitamin (Multi-Day tablet) 1 ea PO DAILY 07/04/15 cyanocobalamin (B12)-cobamamide 1 ea sublingual DAILY 08/29/17 5,000 mcg-100 mcg sublingual tablet fish, borage, flaxseed oils-omega 1 cap PO DAILY 09/19/18 3,6,9 cb #1 400 mg-400 mg-400 mg cap ([place] 3-6-9 Complex) coenzyme Q10 50 mg capsule (Co 50 mg PO DAILY 09/25/18 Q-10) magnesium 250 mg tablet 300 mg PO .every other day 05/16/22 omeprazole 20 mg capsule,delayed 20 mg PO DAILY #90 caps 07/29/23 release rosuvastatin 20 mg tablet (Crestor) 20 mg PO HS #90 tabs 07/29/23 aspirin 81 mg chewable tablet 81 mg PO DAILY 10/30/23 celecoxib 100 mg capsule (Celebrex) 100 mg PO BID PRN pain #180 caps 11/05/23 levothyroxine 125 mcg tablet 125 mcg PO DAILY #90 tabs 01/20/24 acetaminophen 500 mg capsule 500 mg PO BID PRN 06/09/24 Current Visit Medications: Current Medications Generic Name Dose Route Start Last Admin Trade Name Freq PRN Reason Stop Dose Admin Hyoscyamine Sulfate 0.125 mg 06/12/24 08:38 Hyoscyamine 0.125 Mg Sl/Oral/Chew SL PRN PRN Ringer's Solution 1,000 mls @ 80 mls/hr 06/12/24 06:50 06/12/24 06:52 IV 07/12/24 06:49 80 mls/hr INFUSION ANGELINE Administration IV Miscellaneous Supplies 1 each 06/12/24 06:00 Iv Access IV 06/12/24 23:59 DIRECTED ANGELINE Ondansetron HCl 4 mg 06/12/24 08:38 Ondansetron 4 Mg/2 Ml Vial IVP 07/12/24 08:37 Q4H PRN PRN Nausea / Vomiting Sodium Chloride 0 ml 06/12/24 06:00 Normal Saline Flush 10 Ml Syr IV 06/12/24 23:59 PRN PRN Sodium Chloride 0 ml 06/12/24 06:00 Normal Saline 10 Ml Vial IJ 06/12/24 23:59 DIRECTED PRN Sterile Water 0 ml 06/12/24 06:00 Water,Injection,Sterile 10 Ml Vial IJ 06/12/24 23:59 DIRECTED PRN PFSH Active Problems Active Problems: Problem Status Onset Code Family history of malignant neoplasm of colon in relative diagnosed when older than 50 years of age Acute Z80.0 History of left breast cancer Chronic ~1993 Z85.3 Osteoporosis Chronic M81.0 Hypothyroidism Chronic E03.9 Hyperlipidemia Chronic E78.5 Prediabetes Chronic R73.03 Gastroesophageal reflux disease Chronic K21.9 Arthritis of right glenohumeral joint Chronic M19.011 Arthritis of left glenohumeral joint Chronic M19.012 Chronic low back pain Chronic M54.5, G89.29 Urge incontinence Chronic Obesity Chronic E66.9 Sensorineural hearing loss (SNHL) Chronic H90.5 Sigmoid diverticulosis Chronic K57.30 Medical History Medical History Malignant neoplasm of left breast 1992 s/p chemo, radiation, lumpectomy, tamoxifen. 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 12/17 and right breast 2021 Surgical History Surgical History (Reviewed 10/30/23 @ 13:19 by BECKY Andrade History of total right knee replacement (09/04/22) Status post left knee replacement (09/25/18) Status post left breast lumpectomy (1992) S/P tonsillectomy and adenoidectomy S/P colonoscopy (06/19/13) H/O total mastectomy of left breast (06/27/18) Tobacco Smoking/Tobacco Use Status: Former Tobacco Use Passive smoking exposure: No Alcohol Alcohol Intake: current Alcohol intake frequency: a few times a week Alcohol type: wine Substance Use Substance use: Never Substance use type: does not use Prental History History 4 Para 2 Hx # Term Pregnancies Multiple births Hx # Pregnancies Ectopic pregnancies AB induced 2 Hx Number of Living Children 2 AB spontaneous Vital Signs and Lab Results Vital Signs Most Recent Vital Signs in EMR: Most Recent Vital Signs Temp Pulse Resp BP Pulse Ox 36.6 C 91 H 20 151/79 H 96 06/12/24 06:23 06/12/24 06:23 06/12/24 06:23 06/12/24 06:23 06/12/24 06:23 Lab Results Blood Type / Crossmatch: No Data to Display Complete Blood Count: No Data to Display Complete Metabolic Panel: No Data to Display Liver Function Panel: No Data to Display Coagulation Panel: No Data to Display Cardiac Panel: No Data to Display Arterial Blood Gas: No Data to Display Venous Blood Gas: No Data to Display Pancreas Panel: No Data to Display Thyroid Panel: No Data to Display Infectious Disease: No Data to Display Blood Cultures: No Data to Display Toxicology Panel: No Data to Display Anesthesia Assessment and Plan Anesthesia History Personal History: Delayed Emergence Family History: No Family History of Anesthesia Complications Exercise Tolerance Exercise Tolerance: Metabolic Equivalents>4 Pertinent Negatives Pertinent Negatives: No Symptoms of GERD Cardiac & Pulmonary Exam Cardiac Exam: Normal S1/S2 Heart Sounds Pulmonary Exam: Clear Bilateral Breath Sounds Implantable Cardiac Device Does patient have a Pacemaker or an ICD?: No Airway Exam Known Difficult Airway: No Mallampati Class: 2 Mouth Opening: Normal (> 3cm) Thyromental Distance: Greater than 3 cm Neck Range of Motion: Full ROM Neck Circumference: Normal Teeth Condition: Normal Dentition and Removable Dentures/Plates Upper (partial) ASA Classification ASA Score: ASA 2 Emergency Case?: No NPO Status NPO Status: NPO Clears >2 hours, Solids >8 hours Anesthesia Plan Resuscitation Status: Full Code Anesthesia Technique: General Anesthesia Airway Planned: Natural Airway Monitors Used: Standard Monitors
--- NOTE | 2024-06-12 08:11 | BOWEL_PTH ---
PATIENT: Neisha Gómez LOC: [facility] U#:[id number] AGE/SX: 79/F ROOM: RE06/12/[address]: Nano France : 1945 BED: DIS: 06/12/2024 SPEC #: [id number] RECD: 06/12/24 13:02 STATUS: CALVIN REDmitri #: [id number] BENEDICT: 06/12/24 08:[address]: Nano France DEPT: Surgical Specimen RECD BY: Alesia Diaz ENTERED: 06/12/24 13:03 SP TYPE: Bowel OTHR DR: Argelia Carpenter, [place] Tissues: 1 - BIOPSY BOWEL Procedures: GROSS AND MICRO LEVEL 4 Comments: [id number]
[2024-06-12 08:18] VITALS: BP 119/51; PULSE 84; RESP 17; TEMP 36.3; O2SAT 93
--- NOTE | 2024-06-12 08:30 | W.ANESPOSTOP ---
Postoperative Evaluation Date, Time and Location Date Performed: 06/12/24 Time Performed: 08:30 Patient Location: Day Surgery Unit Vital Signs Most Recent Imported Vital Signs: Most Recent Vital Signs Temp Pulse Resp BP Pulse Ox 36.3 C L 84 17 119/51 L 93 06/12/24 08:18 06/12/24 08:18 06/12/24 08:18 06/12/24 08:18 06/12/24 08:18 Pain Score Most Recent Pain Score: Most Recent Pain Score Pain Level 0 06/12/24 06:23 Assessment Mental Status: Awake (Alert & Oriented to Patient Baseline) Airway and Respiratory Function: Patent airway with normal (patient baseline) respiratory exam Cardiovascular Function: Hemodynamically Stable Hydration Status: Adequately Hydrated Nausea & Vomiting: No Nausea or Vomiting Pain: Pt. Denies Any Pain Peripheral Nerve Block: Patient did not receive a nerve block
[2024-06-12 08:44] VITALS: BP 145/69; PULSE 79; RESP 16; TEMP 36.2; O2SAT 96
== END 2024-06-12 09:10 | disposition home or self-care (01) ==
LOC: SUR 06:14
PROVIDERS: PCP Nurse Practitioner Family; Visit Provider Surgery
PROC: 0DJD8ZZ Inspection of Lower Intestinal Tract, Via Natural or Artificial Opening Endoscopic (ICD-10-PCS; CPT 45378; principal; 2024-06-12 07:30)
DX: Z12.11 Encounter for screening for malignant neoplasm of colon (principal); K57.30 Diverticulosis of large intestine without perforation or abscess without bleeding; Z80.0 Family history of malignant neoplasm of digestive organs; K63.5 Polyp of colon; K63.89 Other specified diseases of intestine
CPT/HCPCS: 45380; 88305; J2003; J2704

== ENCOUNTER → 2024-07-29 10:00 | Outpatient (BNVA) | payer MEDICARE, OTHER, SELFPAY | PROVIDERS: PCP Nurse Practitioner Family; Referring Provider Nurse Practitioner Family; Visit Provider Student in an Organized Health Care Education/Training Program | DX: M19.012 Primary osteoarthritis, left shoulder (principal); M19.011 Primary osteoarthritis, right shoulder | CPT/HCPCS: 99213 ==

== ENCOUNTER 2024-09-07 02:06 | Outpatient (CLI) | payer MEDICARE, OTHER, SELFPAY ==
--- NOTE | 2024-09-07 07:30 | DI.MAMMO_ITS ---
Exam(s) MG MAMMO SCREENING 60 MIN DUR EXAM: MG MAMMO SCREENING 60 MIN DUR CLINICAL HISTORY: breast cancer screening,PERSONAL H/O BREAST CA,Z85.3,Z12.39 TECHNIQUE: Mammograms were interpreted according to the usual protocol including computer analysis w [employer] CAD system, tomosynthesis and C-view imaging. COMPARISON: 2018 through 2023 FINDINGS: The right breast is composed of scattered fibroglandular densities, Breast Density category B. Status post left mastectomy. No suspicious masses or suspicious microcalcifications are seen in the right breast. No skin thickening or abnormal axillary lymph nodes are seen. There has been no significant change from prior exams. IMPRESSION: BI-RADS Category 1, Negative mammogram Yearly screening mammography is recommended. Breast Density - Category B, scattered fibroglandular densities. A negative radiographic report should not delay biopsy if a dominant or clinically suspicious mass is present. Up to ten percent of cancers are not identified on mammography. A negative report may reinforce clinical impression. Adenosis and dense breasts may obscure an underlying neoplasm. False positive reports average 6 to 10%. Patient will receive a letter notifying them of these results.
== END 2024-09-07 02:26 ==
LOC: DI 02:06
PROVIDERS: PCP Nurse Practitioner Family; Visit Provider Nurse Practitioner Family
DX: Z12.31 Encounter for screening mammogram for malignant neoplasm of breast (principal); Z85.3 Personal history of malignant neoplasm of breast; R92.323 Mammographic fibroglandular density, bilateral breasts
CPT/HCPCS: 77063; 77067

== ENCOUNTER 2024-10-09 00:33 | Outpatient (CLI) | payer MEDICARE, OTHER, SELFPAY ==
--- NOTE | 2024-10-09 06:30 | DI.RAD_ITS ---
Exam(s) RF JOINT INJ. FLUORO GUID RAD EXAM: RF JOINT INJ. FLUORO GUID RAD -LEFT SHOULDER CLINICAL HISTORY: lt shoulder pain,arthritis lt glenohumeral joint, m19.012,fluoro guided. TECHNIQUE: 2D and realtime digital imaging was performed. CONTRAST MATERIAL: Intra-articular Omnipaque-300; 1 cc COMPARISON: Prior plain film images reviewed FINDINGS: This left shoulder fluoroscopic guided glenohumeral joint steroid injection was performed at the requ est of the referring orthopedic surgeon. Patient was consented prior to this procedure Patient was placed in the supine position on the fluoroscopy table. Using sterile technique and adequate skin-subcutaneous anesthesia, fluoroscopic guidance was used to advance a 22 gauge spinal needle into the glenohumeral joint using an anterior approach. Intra-artic ular position was confirmed with injection of 1 cc of Omnipaque 300 via the indwelling needle. Thereafter a sterile solution of 40 mg Depo-Medrol and 3 cc 0.5 percent bupivacaine was injected into the joint. Needle was removed. Band-Aid applied Patient tolerated this procedure well and there were no intraprocedural complications. IMPRESSION: Successful left shoulder glenohumeral joint steroid injection using fluoroscopic guidance RADIATION DOSE DELIVERED: Ka,r=1.41mGy
--- NOTE | 2024-10-09 06:30 | DI.RAD_ITS ---
Exam(s) RF JOINT INJ. FLUORO GUID RAD EXAM: RF JOINT INJ. FLUORO GUID RAD CLINICAL HISTORY: rt shoulder pain,arthritis rt glenohumeral joint,m19.011,fluoro guided. TECHNIQUE: 2D and realtime digital imaging was performed. CONTRAST MATERIAL: Intra-articular Omnipaque 300: 1 cc COMPARISON: Prior plain films reviewed FINDINGS: This right shoulder fluoroscopic guided therapeutic steroid injection was performed at the request of the referring orthopedic surgeon. Patient was consented prior to this procedure. Patient was placed in the supine position on the fluoroscopy table. Using sterile technique and adequate skin-subcutaneous anesthesia, fluoroscopic guidance was used to advance a 22 gauge spinal needle into the glenohumeral joint using an anterior approach. Intra-articular position was confirmed with injection of iodinated contrast the indwelling needle. Thereafter a solution of 40 milligram Depo-Medrol and 3 cc of 0.5 percent bupivacaine was injected in to the joint space. Patient tolerated this procedure well and there were no intraprocedural complications. IMPRESSION: Successful right glenohumeral joint steroid injection We then proceeded with similar injection in the opposite-left Shoulder. RADIATION DOSE DELIVERED: Ka,r=0.746mGy
[2024-10-09] MEDS: Omnipaque 300 MG/ML 10 ML BTL IJ (11:44)
[2024-10-09] MEDS: methylPREDNISolone ACETATE 40 MG/ML VIAL IJ ×2 (11:45→11:48)
[2024-10-09] MEDS: Bupivacaine 0.5% Pres-Free 10 ML VIAL IJ (11:46)
[2024-10-09] MEDS: Lidocaine 1% Pres-Free 30 ML VIAL 20 ML IJ (11:48)
== END 2024-10-09 00:53 ==
LOC: DI 00:33
PROVIDERS: PCP Nurse Practitioner Family; Visit Provider Student in an Organized Health Care Education/Training Program
DX: M19.011 Primary osteoarthritis, right shoulder (principal); M19.012 Primary osteoarthritis, left shoulder
CPT/HCPCS: 20610; 77002; J0665; J1010

== ENCOUNTER 2024-12-03 02:56 | Outpatient (CLI) | payer MEDICARE, OTHER, SELFPAY ==
[2024-12-03 13:56] LABS: Hemoglobin A1C 5.6 % (<5.7)
[2024-12-03 14:12] LABS: Anion Gap 10.2 mmol/L (3-11); BUN 18 mg/dL (7-18); CO2 26.8 mmol/L (21.0-32.0); Calcium 9.2 mg/dL (8.5-10.1); Calculated LDL 100 mg/dL (<100); Chloride 105 mmol/L (98-107); Cholesterol 209 mg/dL (<200); Estimated GFR 75.84 (mL/min/1.73m2); Glucose 94 mg/dL (74-106); HDL Cholesterol 70 mg/dL (>or=50); Potassium 4.1 mmol/L (3.5-5.1); Sodium 142 mmol/L (136-145); TSH (W/Ref FT4) 2.15 uIU/mL (0.36-3.74); Triglyceride 195 mg/dL (<150)
== END 2024-12-03 02:57 | disposition home or self-care (01) ==
LOC: LBO 02:58
PROVIDERS: PCP Nurse Practitioner Family; Visit Provider Nurse Practitioner Family
DX: R73.03 Prediabetes (principal); Z00.00 Encounter for general adult medical examination without abnormal findings; E03.9 Hypothyroidism, unspecified; E78.5 Hyperlipidemia, unspecified; M81.0 Age-related osteoporosis without current pathological fracture; E66.9 Obesity, unspecified; M19.011 Primary osteoarthritis, right shoulder; M19.012 Primary osteoarthritis, left shoulder; K57.30 Diverticulosis of large intestine without perforation or abscess without bleeding; K21.9 Gastro-esophageal reflux disease without esophagitis
CPT/HCPCS: 36415; 80048; 80061; 83036; 84443